=== PATIENT | female | born 1935 | race Caucasian/White ===

== ENCOUNTER 2017-08-26 15:03 | Emergency (ER) | payer MEDICARE, OTHER ==
[2017-08-26 15:11] VITALS: RESP 18
--- NOTE | 2017-08-26 15:30 | ED ---
General Adult HPI - General Chief complaint: Shortness of Breath Stated complaint: SOB Time Seen by Provider: 08/26/17 15:12 Source: patient, family, RN notes reviewed, old records reviewed Mode of arrival: ambulatory Limitations: no limitations - History of Present Illness Initial comments: This is a 41-year-old female the ER for evaluation significant shortness of breath weakness, heart racing. Patient has history, did recently of heart surgery, cough and congestion, recent thoracentesis secondary to pleural effusion, patient coming in today with increasing shortness of breath, weakness. Difficulty catching her breath. Patient unable to fill outpatient prescription for rate control Cardizem for her heart - Related Data Allergies Allergy/AdvReac Type Severity Reaction Status Date / Time diltiazem AdvReac Unknown Verified 08/26/17 15:12 timolol AdvReac Unknown Verified 08/26/17 15:11 beta blockers AdvReac Unknown Uncoded 08/26/17 15:12 Review of Systems ROS Statement: Those systems with pertinent positive or pertinent negative responses have been documented in the HPI. ROS Other: All systems not noted in ROS Statement are negative. Past Medical History Additional Past Medical History / Comment(s): pleural effusion, mitral valve prolapse History of Any Multi-Drug Resistant Organisms: None Reported Additional Past Surgical History / Comment(s): mitral and tricuspid repair, thoracentesis Past Psychological History: No Psychological Hx Reported Smoking Status: Former smoker Past Alcohol Use History: None Reported Past Drug Use History: None Reported General Exam Limitations: no limitations General appearance: alert, in no apparent distress Head exam: Present: atraumatic, normocephalic, normal inspection Eye exam: Present: normal appearance, PERRL, EOMI. Absent: scleral icterus, conjunctival injection, periorbital swelling ENT exam: Present: normal exam, mucous membranes moist Neck exam: Present: normal inspection. Absent: tenderness, meningismus, lymphadenopathy Respiratory exam: Present: normal lung sounds bilaterally. Absent: respiratory distress, rales, rhonchi, stridor Cardiovascular Exam: Present: tachycardia, normal heart sounds. Absent: systolic murmur, diastolic murmur, rubs, gallop, clicks GI/Abdominal exam: Present: soft, normal bowel sounds. Absent: distended, tenderness, guarding, rebound, rigid Extremities exam: Present: normal inspection, full ROM, normal capillary refill. Absent: tenderness, pedal edema, joint swelling, calf tenderness Back exam: Present: normal inspection Neurological exam: Present: alert, oriented X3, CN II-XII intact Psychiatric exam: Present: normal affect, normal mood Skin exam: Present: warm, dry, intact, normal color. Absent: rash Course Vital Signs 08/26/17 08/26/17 08/26/17 15:07 15:44 16:11 Temperature 98.2 F Pulse Rate 73 131 H Pulse Rate [ 125 H Summer Counselor ] Respiratory 18 18 Rate Blood Pressure 113/78 134/72 O2 Sat by Pulse 98 98 Oximetry 08/26/17 08/26/17 08/26/17 16:27 16:37 17:23 Temperature Pulse Rate 124 H 104 H 110 H Pulse Rate [ Summer Counselor ] Respiratory 18 18 18 Rate Blood Pressure 126/59 128/58 O2 Sat by Pulse 99 98 Oximetry - Reevaluation(s) Reevaluation #1: 08/26/17 17:48 Spoke with family at length, requesting transfer under patient's own care of own physician Reevaluation #2: 08/26/17 17:49 Heart rate remains difficult to control despite second bolus and rate control medication EKG Findings - EKG Comments: EKG Findings:: EKG shows a flutter rate of 124, QRS 84, QTC 494 Medical Decision Making - Medical Decision Making 81 female the ER for evaluation, transferred to [facility] for rate control regarding atrial fibrillation with RVR. Further evaluation of elevated troponin - Lab Data Result diagrams: 08/26/17 15:30 08/26/17 15:30 Lab Results 08/26/17 08/26/17 08/26/17 Range/Units 15:30 15:30 15:30 WBC 9.4 (3.8-10.6) k/uL RBC 3.27 L (3.80-5.40) m/uL Hgb 9.6 L (11.4-16.0) gm/dL Hct 30.1 L (34.0-46.0) % MCV 91.9 (80.0-100.0) fL MCH 29.4 (25.0-35.0) pg MCHC 32.0 (31.0-37.0) g/dL RDW 13.6 (11.5-15.5) % Plt Count 653 H (150-450) k/uL Neutrophils % 76 % Lymphocytes % 13 % Monocytes % 8 % Eosinophils % 2 % Basophils % 0 % Neutrophils # 7.1 (1.3-7.7) k/uL Lymphocytes # 1.2 (1.0-4.8) k/uL Monocytes # 0.7 (0-1.0) k/uL Eosinophils # 0.2 (0-0.7) k/uL Basophils # 0.0 (0-0.2) k/uL Hypochromasia Moderate PT (9.0-12.0) sec INR (<1.2) APTT (22.0-30.0) sec Sodium 136 L (137-145) mmol/L Potassium 4.5 (3.5-5.1) mmol/L Chloride 96 L (98-107) mmol/L Carbon Dioxide 29 (22-30) mmol/L Anion Gap 11 mmol/L BUN 24 H (7-17) mg/dL Creatinine 0.80 (0.52-1.04) mg/dL Est GFR (CKD-EPI)AfAm 81 (>60 ml/min/1.73 sqM) Est GFR (CKD-EPI)NonAf 71 (>60 ml/min/1.73 sqM) Glucose 118 H (74-99) mg/dL Plasma Lactic Acid Harry (0.7-2.0) mmol/L Calcium 9.1 (8.4-10.2) mg/dL Total Bilirubin 0.4 (0.2-1.3) mg/dL AST 32 (14-36) U/L ALT 24 (9-52) U/L Alkaline Phosphatase 85 (38-126) U/L Total Creatine Kinase <20 L (30-135) U/L CK-MB (CK-2) 0.8 (0.0-2.4) ng/mL CK-MB (CK-2) Rel Index Troponin I 0.074 H* (0.000-0.034) ng/mL Total Protein 5.9 L (6.3-8.2) g/dL Albumin 3.2 L (3.5-5.0) g/dL 08/26/17 08/26/17 Range/Units 15:30 15:30 WBC (3.8-10.6) k/uL RBC (3.80-5.40) m/uL Hgb (11.4-16.0) gm/dL Hct (34.0-46.0) % MCV (80.0-100.0) fL MCH (25.0-35.0) pg MCHC (31.0-37.0) g/dL RDW (11.5-15.5) % Plt Count (150-450) k/uL Neutrophils % % Lymphocytes % % Monocytes % % Eosinophils % % Basophils % % Neutrophils # (1.3-7.7) k/uL Lymphocytes # (1.0-4.8) k/uL Monocytes # (0-1.0) k/uL Eosinophils # (0-0.7) k/uL Basophils # (0-0.2) k/uL Hypochromasia PT 10.9 (9.0-12.0) sec INR 1.1 (<1.2) APTT 25.9 (22.0-30.0) sec Sodium (137-145) mmol/L Potassium (3.5-5.1) mmol/L Chloride (98-107) mmol/L Carbon Dioxide (22-30) mmol/L Anion Gap mmol/L BUN (7-17) mg/dL Creatinine (0.52-1.04) mg/dL Est GFR (CKD-EPI)AfAm (>60 ml/min/1.73 sqM) Est GFR (CKD-EPI)NonAf (>60 ml/min/1.73 sqM) Glucose (74-99) mg/dL Plasma Lactic Acid Harry 1.5 (0.7-2.0) mmol/L Calcium (8.4-10.2) mg/dL Total Bilirubin (0.2-1.3) mg/dL AST (14-36) U/L ALT (9-52) U/L Alkaline Phosphatase (38-126) U/L Total Creatine Kinase (30-135) U/L CK-MB (CK-2) (0.0-2.4) ng/mL CK-MB (CK-2) Rel Index Troponin I (0.000-0.034) ng/mL Total Protein (6.3-8.2) g/dL Albumin (3.5-5.0) g/dL - Radiology Data Radiology results: report reviewed (Chest x-ray shows no acute disease), image reviewed Critical Care Time Critical Care Time: Yes Total Critical Care Time: 31 Disposition Clinical Impression: Atrial fibrillation with RVR Disposition: OTHER INSTITUTION NOT DEFINED Condition: Fair Is patient prescribed a controlled substance at d/c from ED?: No Referrals: Jay Espinoza III, MD [Primary Care Provider] - 1-2 days - Out of Hospital Transfer - Req. Specs Out of Hospital Transfer - Requested Specifics: Other Emergency Center ( [facility])
[2017-08-26 15:47] LABS: Basophils % (A) 0 %; Eosinophils # (A) 0.2 k/uL (0-0.7); Eosinophils % (A) 2 %; HCT 30.1 % (34.0-46.0); HGB 9.6 gm/dL (11.4-16.0); Hypochromasia Moderate; Lymphocytes # (A) 1.2 k/uL (1.0-4.8); Lymphocytes % (A) 13 %; MCH 29.4 pg (25.0-35.0); MCV 91.9 fL (80.0-100.0); Mean Platelet Volume 7.2; Monocytes # (A) 0.7 k/uL (0-1.0); Monocytes % (A) 8 %; Neutrophils # (A) 7.1 k/uL (1.3-7.7); Neutrophils % (A) 76 %; Platelet Count 653 k/uL (150-450); RBC 3.27 m/uL (3.80-5.40); RDW 13.6 % (11.5-15.5); WBC 9.4 k/uL (3.8-10.6)
[2017-08-26] MEDS ORDERED: DILTIAZEM 50 MG in SODIUM CHLORIDE 0.9% 40 ML IV ONE (15:54)
[2017-08-26 15:57] LABS: INR 1.1 (<1.2); Partial Thromboplastin Time 25.9 sec (22.0-30.0); Prothrombin Time 10.9 sec (9.0-12.0)
--- NOTE | 2017-08-26 16:02 | XR ---
EXAMINATION TYPE: XR chest 2V DATE OF EXAM: 08/26/2017 COMPARISON: NONE HISTORY: Shortness of breath TECHNIQUE: Frontal and lateral views of the chest are obtained. FINDINGS: Scattered senescent parenchymal changes noted. Elevation right hemidiaphragm. Bilateral pleural effusions. Nodular density left suprahilar region. Heart size is enlarged. Cardiac valvular prostheses noted. Mediastinal structures are stable and grossly unremarkable. No evidence for hilar prominence. Degenerative changes dorsal spine. IMPRESSION: 1. Small bilateral pleural effusions. Chronic elevation right hemidiaphragm. 2. 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
[2017-08-26 16:03] LABS: Albumin 3.2 g/dL (3.5-5.0); Calcium 9.1 mg/dL (8.4-10.2); Potassium 4.5 mmol/L (3.5-5.1); Total Bilirubin 0.4 mg/dL (0.2-1.3); Total Protein 5.9 g/dL (6.3-8.2)
[2017-08-26 16:18] LABS: Creatine Kinase <20 U/L (30-135)
[2017-08-26] MEDS ORDERED: DILTIAZEM 5 MG/1 ML (25ML VIAL) IV STA (16:21)
[2017-08-26 16:30] LABS: Creatine Kinase MB 0.8 ng/mL (0.0-2.4)
[2017-08-26 16:38] LABS: Troponin I 0.074 ng/mL (0.000-0.034)
[2017-08-26 17:54] VITALS: BP 126/78; PULSE 119; TEMP 98
== END 2017-08-26 18:03 | disposition other institution (70) ==
LOC: EC 15:03
DX: I48.91 Unspecified atrial fibrillation (principal); R53.1 Weakness; Z87.891 Personal history of nicotine dependence; Z88.8 Allergy status to other drugs, medicaments and biological substances
CPT/HCPCS: 36415; 71046; 80053; 82550; 82553; 83605; 84484; 85025; 85610; 85730; 93005; 96365; 96366; 96376; 99291

== ENCOUNTER 2019-11-08 15:59 | Emergency (ER) | payer MEDICARE, OTHER ==
[2019-11-08] MEDS ORDERED: SODIUM CHLORIDE 0.9% 1,000 ML IV STA (16:24)
--- NOTE | 2019-11-08 16:27 | ED ---
General Adult HPI - General Chief complaint: Neuro Symptoms/Deficit Stated complaint: Stroke like symptoms Time Seen by Provider: 11/08/19 16:06 Source: patient, RN notes reviewed Mode of arrival: ambulatory Limitations: no limitations - History of Present Illness Initial comments: Patient is a pleasant 84-year-old female presenting to the emergency Department with complaints of being off balance and is told changes. Patient felt off balance starting yesterday. Symptoms have been intermittent. Patient had an episode around 9:30 this morning when she was trying to read her computer however had very blurry vision out of her right eye and difficulty reading. Symptoms are only present during that episode and have not been present otherwise. Patient is symptom-free at this time resting in bed. Daughter is present who seems to contradict patient at times however patient does seem to be an adequate historian. Patient also has complaints of some paresthesias of the left neck without radiation to the face or arm. No noticed isolated weakness of arms or legs. No facial weakness. No headache. - Related Data Home Medications Medication Instructions Recorded Confirmed Aspirin 81 mg PO DAILY 11/08/19 11/08/19 Verapamil HCl [Verapamil ER] 180 mg PO HS 11/08/19 11/08/19 Allergies Allergy/AdvReac Type Severity Reaction Status Date / Time Beta-Blockers AdvReac heart Verified 11/08/19 17:05 (Beta-Adrenergic Bloc issues diltiazem AdvReac heart Verified 11/08/19 17:04 issues timolol AdvReac heart Verified 11/08/19 17:04 issues Review of Systems ROS Statement: Those systems with pertinent positive or pertinent negative responses have been documented in the HPI. ROS Other: All systems not noted in ROS Statement are negative. Constitutional: Denies: fever Eyes: Reports: as per HPI, vision change. Denies: eye pain ENT: Denies: ear pain Respiratory: Denies: cough Cardiovascular: Denies: chest pain Endocrine: Denies: fatigue Gastrointestinal: Denies: abdominal pain Genitourinary: Denies: dysuria Musculoskeletal: Denies: back pain Skin: Denies: rash Neurological: Reports: as per HPI. Denies: headache Past Medical History Additional Past Medical History / Comment(s): pleural effusion, mitral valve prolapse History of Any Multi-Drug Resistant Organisms: None Reported Past Surgical History: Coronary Bypass/CABG Additional Past Surgical History / Comment(s): mitral and tricuspid repair, thoracentesis Past Psychological History: No Psychological Hx Reported Smoking Status: Never smoker Past Alcohol Use History: None Reported Past Drug Use History: None Reported General Exam Limitations: no limitations General appearance: alert, in no apparent distress Head exam: Present: normocephalic Eye exam: Present: normal appearance, PERRL, EOMI. Absent: nystagmus ENT exam: Present: normal oropharynx Neck exam: Present: normal inspection Respiratory exam: Present: normal lung sounds bilaterally Cardiovascular Exam: Present: regular rate, normal rhythm GI/Abdominal exam: Present: soft. Absent: tenderness Extremities exam: Present: normal inspection Neurological exam: Present: alert, oriented X3, CN II-XII intact. Absent: motor sensory deficit Expanded Neurological exam: Present: protecting the airway Patient oriented to: Present: person, place, time Speech: Present: fluid speech Cranial nerves: EOM's Intact: Normal, Facial Sensation: Normal Sensory exam: Upper Extremity Light Touch: Normal, Lower Extremity Light Touch: Normal Motor strength exam: RUE: 5, LUE: 5, RLE: 5, LLE: 5 Eye Response: (4) open spontaneously Motor Response: (6) obeys commands Verbal Response: (5) oriented Psychiatric exam: Present: normal affect, normal mood Skin exam: Present: normal color Course Vital Signs 11/08/19 11/08/19 11/08/19 16:00 16:30 17:00 Temperature 98.5 F Pulse Rate 87 72 85 Respiratory 20 20 21 Rate Blood Pressure 138/72 131/103 135/89 O2 Sat by Pulse 97 96 95 Oximetry - Reevaluation(s) Reevaluation #1: 11/08/19 16:59 Case was discussed with Dr. ugalde who agrees patient is not a TPA candidate. He will accept transfer to [facility] if family is agreeable with this. There is no neurology present at our hospital today. 11/08/19 18:18 Patient reevaluated and resting comfortably in bed. Patient rates symptom-free at this point. Patient and family updated. Daughter states she works at [facility] [employer] [facility] and requests patient be transferred there. Patient is recommended transfer by ambulance however patient and daughter refuses this and they will drive on their own. They are made aware that recommendation for and will transfer is made and reasons why were explained to them 11/08/19 18:24 Case was discussed with Sandip from the transfer chain or [facility] as well as Dr. De Paz who will accept transfer. EKG Findings - EKG Comments: EKG Findings:: Sinus rhythm at 83. Premature superventricular, axis. IN 136. QRS 78. QT 392. QTC 460. Normal axis. Normal QRS. Nonspecific T waves. Medical Decision Making - Lab Data Result diagrams: 11/08/19 16:29 11/08/19 16:29 Lab Results 11/08/19 11/08/19 11/08/19 Range/Units 16:29 16:29 16:29 WBC 8.9 (3.8-10.6) k/uL RBC 3.78 L (3.80-5.40) m/uL Hgb 12.5 (11.4-16.0) gm/dL Hct 37.5 (34.0-46.0) % MCV 99.2 (80.0-100.0) fL MCH 33.0 (25.0-35.0) pg MCHC 33.3 (31.0-37.0) g/dL RDW 13.1 (11.5-15.5) % Plt Count 259 (150-450) k/uL Neutrophils % 68 % Lymphocytes % 23 % Monocytes % 5 % Eosinophils % 2 % Basophils % 1 % Neutrophils # 6.0 (1.3-7.7) k/uL Lymphocytes # 2.1 (1.0-4.8) k/uL Monocytes # 0.5 (0-1.0) k/uL Eosinophils # 0.2 (0-0.7) k/uL Basophils # 0.0 (0-0.2) k/uL PT 9.7 (9.0-12.0) sec INR 0.9 (<1.2) APTT 24.4 (22.0-30.0) sec Sodium 136 L (137-145) mmol/L Potassium 4.4 (3.5-5.1) mmol/L Chloride 104 (98-107) mmol/L Carbon Dioxide 24 (22-30) mmol/L Anion Gap 8 mmol/L BUN 22 H (7-17) mg/dL Creatinine 0.84 (0.52-1.04) mg/dL Est GFR (CKD-EPI)AfAm 75 (>60 ml/min/1.73 sqM) Est GFR (CKD-EPI)NonAf 65 (>60 ml/min/1.73 sqM) Glucose 104 H (74-99) mg/dL POC Glucose (mg/dL) (75-99) mg/dL POC Glu Archival Records Clerk ID Calcium 9.7 (8.4-10.2) mg/dL Total Bilirubin 0.2 (0.2-1.3) mg/dL AST 26 (14-36) U/L ALT 19 (4-34) U/L Alkaline Phosphatase 64 (38-126) U/L Troponin I (0.000-0.034) ng/mL Total Protein 7.2 (6.3-8.2) g/dL Albumin 4.4 (3.5-5.0) g/dL 11/08/19 11/08/19 Range/Units 16:29 16:30 WBC (3.8-10.6) k/uL RBC (3.80-5.40) m/uL Hgb (11.4-16.0) gm/dL Hct (34.0-46.0) % MCV (80.0-100.0) fL MCH (25.0-35.0) pg MCHC (31.0-37.0) g/dL RDW (11.5-15.5) % Plt Count (150-450) k/uL Neutrophils % % Lymphocytes % % Monocytes % % Eosinophils % % Basophils % % Neutrophils # (1.3-7.7) k/uL Lymphocytes # (1.0-4.8) k/uL Monocytes # (0-1.0) k/uL Eosinophils # (0-0.7) k/uL Basophils # (0-0.2) k/uL PT (9.0-12.0) sec INR (<1.2) APTT (22.0-30.0) sec Sodium (137-145) mmol/L Potassium (3.5-5.1) mmol/L Chloride (98-107) mmol/L Carbon Dioxide (22-30) mmol/L Anion Gap mmol/L BUN (7-17) mg/dL Creatinine (0.52-1.04) mg/dL Est GFR (CKD-EPI)AfAm (>60 ml/min/1.73 sqM) Est GFR (CKD-EPI)NonAf (>60 ml/min/1.73 sqM) Glucose (74-99) mg/dL POC Glucose (mg/dL) 118 H (75-99) mg/dL POC Glu Archival Records Clerk ID Arminda Wang Calcium (8.4-10.2) mg/dL Total Bilirubin (0.2-1.3) mg/dL AST (14-36) U/L ALT (4-34) U/L Alkaline Phosphatase (38-126) U/L Troponin I <0.012 (0.000-0.034) ng/mL Total Protein (6.3-8.2) g/dL Albumin (3.5-5.0) g/dL Disposition Clinical Impression: Transient cerebral ischemia Disposition: OTHER INSTITUTION NOT DEFINED Is patient prescribed a controlled substance at d/c from ED?: No Referrals: Jay Espinoza III, MD [Primary Care Provider] - 1-2 days Time of Disposition: 18:26 - Out of Hospital Transfer - Req. Specs Out of Hospital Transfer - Requested Specifics: Other Emergency Center
[2019-11-08 16:31] LABS: Glucose,Whole Blood 118 mg/dL (75-99)
[2019-11-08 16:54] LABS: Basophils % (A) 1 %; Eosinophils # (A) 0.2 k/uL (0-0.7); Eosinophils % (A) 2 %; HCT 37.5 % (34.0-46.0); HGB 12.5 gm/dL (11.4-16.0); Lymphocytes # (A) 2.1 k/uL (1.0-4.8); Lymphocytes % (A) 23 %; MCHC 33.3 g/dL (31.0-37.0); MCV 99.2 fL (80.0-100.0); Mean Platelet Volume 8.2; Monocytes # (A) 0.5 k/uL (0-1.0); Monocytes % (A) 5 %; Neutrophils % (A) 68 %; Platelet Count 259 k/uL (150-450); RBC 3.78 m/uL (3.80-5.40); RDW 13.1 % (11.5-15.5); WBC 8.9 k/uL (3.8-10.6)
--- NOTE | 2019-11-08 16:58 | CT ---
EXAMINATION TYPE: CT brain wo con for TPA DATE OF EXAM: 11/08/2019 COMPARISON: None HISTORY: Near syncope and numbness. CT DLP: 1102.8 mGycm Automated exposure control for dose reduction was used. Multiple axial sections were obtained of the brain without contrast. Ventricles and sulci appear normal. There is no mass effect nor midline shift. There is no sign of in tracranial hemorrhage. There is mild cerebral atrophy. Calvarium is intact. IMPRESSION: Mild atrophy. No acute intracranial abnormality.
[2019-11-08 17:04] LABS: Albumin 4.4 g/dL (3.5-5.0); Calcium 9.7 mg/dL (8.4-10.2); INR 0.9 (<1.2); Partial Thromboplastin Time 24.4 sec (22.0-30.0); Potassium 4.4 mmol/L (3.5-5.1); Prothrombin Time 9.7 sec (9.0-12.0); Total Bilirubin 0.2 mg/dL (0.2-1.3); Total Protein 7.2 g/dL (6.3-8.2)
--- NOTE | 2019-11-08 17:34 | CT ---
EXAMINATION TYPE: CT angio head neck DATE OF EXAM: 11/08/2019 COMPARISON: None HISTORY: Syncope. Numbness. CT DLP: mGycm Automated exposure control for dose reduction was used. CONTRAST: Performed , patient injected with mL of . The contrast was Isovue 65 mL. Images were obtained from the aortic arch to the vertex of the brain w ith IV contrast and 3-D post processed images. There is 1.6 cm nodular density at the superior left pulmonary hilum that could be enlarged lymph nod e. Thoracic aorta is intact. There is normal branching pattern of the great vessels. There is bilater al arterial flow in the subclavian arteries. There is arterial flow in the common internal and swabber al carotid arteries bilaterally. There is bilateral wide patency of the carotid artery bifurcations. There is some tortuosity of the proximal internal carotid arteries bilaterally. There is bilateral ar terial flow in the vertebral arteries. There is arterial flow in the vertebrobasilar artery system. T here is no evidence of carotid or vertebral artery aneurysm or dissection. There is mild ectasia of the intracranial internal carotid arteries. I see no aneurysm. There is janel rial flow in the anterior middle and posterior cerebral arteries. There is no mass effect. I see no e vidence of intracranial arterial stenosis. I see no evidence of intracranial aneurysm or neovasculari ty. There is normal contrast opacification of the venous sinuses. IMPRESSION: Negative CT angiogram of the neck. Negative CT angiogram of the brain. No evidence of arterial hemody namic stenosis.
--- NOTE | 2019-11-08 18:17 | XR ---
EXAMINATION TYPE: XR chest 2V DATE OF EXAM: 11/08/2019 COMPARISON: 10/17/2019 HISTORY: Altered mental status TECHNIQUE: 2 views FINDINGS: There is slight blunting of the costophrenic angles. There is no gross heart failure. There is mild thoracic dextroscoliosis. Lungs appear clear of consolidation. There is small linear infiltr ate above the left pulmonary hilum in the left upper lobe. IMPRESSION: Small pleural effusions or pleural reaction unchanged. No heart failure seen. Small left upper lobe linear infiltrate unchanged.
[2019-11-08] MEDS ORDERED: ASPIRIN 81 MG PO STA (18:18)
[2019-11-08 19:09] VITALS: BP 160/83; PULSE 83; RESP 16; TEMP 98.3
== END 2019-11-08 19:20 | disposition other institution (70) ==
LOC: EC 15:59
DX: G45.9 Transient cerebral ischemic attack, unspecified (principal); Z79.82 Long term (current) use of aspirin; Z79.899 Other long term (current) drug therapy; Z88.8 Allergy status to other drugs, medicaments and biological substances; Z95.1 Presence of aortocoronary bypass graft
CPT/HCPCS: 36415; 93005; 80053; 84484; 85025; 85610; 85730; 71046; 70496; 70450; 70498; 99285; 96360; 96361; Q9967

== ENCOUNTER → 2020-03-10 | Outpatient (CLI) | payer MEDICARE, OTHER ==
--- NOTE | 2020-03-14 11:23 | CT ---
EXAMINATION TYPE: CT chest w con DATE OF EXAM: 03/10/2020 COMPARISON: 12/07/2017 HISTORY: Abnormal findings of lung field CT DLP: 197.40 mGycm, Automated exposure control for dose reduction was used. CONTRAST: Performed injected with 100 ml mL of Isovue 300. TECHNIQUE: Axial images were obtained at 5 mm thick sections. Reconstructed images are reviewed on [facility] computer in the coronal plane. Images are presented on 03/14/2020 for final interpretation upon re ceipt of outside comparison images. FINDINGS: Thyroid is slightly heterogenous. There is a 1.7 x 2.4 cm nodule in the superior medial left upper lobe. Series 3 image 17. Previous me asurement 1.5 x 1.9 cm. This has a spiculated border on the lung windows. A spiculated border is an i nterval change from comparison. There is shotty lymphadenopathy within the mediastinum. No enlarged mediastinal or hilar adenopathy i s evident. The ascending aorta diameter at the level of the main pulmonary artery is 3.3 cm. The m ain pulmonary artery diameter at the bifurcation is 3.[address] sections are obtained through the upper abdomen. There couple small hypodensities within t superior right lobe liver present previously may be small hepatic cysts. Upper abdomen is otherwis e unremarkable. IMPRESSIONS: 1. Mildly enlarging spiculated mass left medial apex. Current measurements of 1.7 x 2.4 cm. This is m ore spiculated appearance on lung windows.
== END | disposition home or self-care (01) ==
LOC: RADCTMAIN 06:30
PROVIDERS: ATTEND Family Medicine
DX: R91.8 Other nonspecific abnormal finding of lung field (principal)
CPT/HCPCS: 82565; 84520; 71260; 36415; Q9967

== ENCOUNTER → 2020-05-04 | Outpatient (CLI) | payer MEDICARE, OTHER ==
--- NOTE | 2020-05-04 12:39 | US ---
EXAMINATION TYPE: US abdomen complete DATE OF EXAM: 05/04/2020 COMPARISON: NONE CLINICAL HISTORY: 84-year-old female R10.10 UPPER ABD PAIN, R10.32 LEFT LOWER QUADRANT PAIN. TECHNIQUE: Multiple sonographic images of the abdomen are obtained. FINDINGS: EXAM MEASUREMENTS: Liver Length: 11.8 cm Gallbladder Wall: 0.1 cm CBD: 0.2 cm Spleen: 6.7 cm Right Kidney: 9.1 x 3.9 x 4.9 cm Left Kidney: 9.2 x 4.0 x 3.6 cm Pancreas: Suboptimal visualization of the pancreatic head and tail due to shadowing from bowel gas. Liver: Heterogeneous echotexture. There is a tiny cyst 1 mm cyst in the right lobe. Gallbladder: Minimal layering gravel is present. No abnormal distention, wall thickening, pericholecy stic fluid, or shadowing calculi. Evidence for sonographic Dunn's sign: no CBD: wnl Spleen: wnl Right Kidney: wnl, no hydronephrosis. Left Kidney: Lobular contour. No hydronephrosis. Upper IVC: wnl Abd Aorta: wnl IMPRESSION: 1. Heterogeneous liver echotexture could be on a technical basis or could reflect nonspecific hepatoc ellular disease. Clinically correlate. 2. Some minimal layering gravel in the gallbladder. 3. No biliary ductal dilatation.
== END | disposition home or self-care (01) ==
LOC: RADUSWWP 09:53
PROVIDERS: ATTEND Family Medicine
DX: R93.2 Abnormal findings on diagnostic imaging of liver and biliary tract (principal); R10.32 Left lower quadrant pain; R10.10 Upper abdominal pain, unspecified
CPT/HCPCS: 76700

== ENCOUNTER → 2020-05-21 | Outpatient (CLI) | payer MEDICARE, OTHER ==
--- NOTE | 2020-05-21 18:56 | US ---
EXAMINATION TYPE: US carotid duplex BILAT DATE OF EXAM: 05/21/2020 COMPARISON: NONE CLINICAL HISTORY: 84-year-old female I67.9 Cerebrovascular disease, unspecified. TECHNIQUE: Carotid duplex ultrasound examination. Indirect Doppler criteria was utilized. FINDINGS: EXAM MEASUREMENTS: RIGHT: Peak Systolic Velocity (PSV) cm/sec ----- Right CCA: 60.6 ----- Right ICA: 140.8 ----- Right ECA: 177.3 ICA/CCA ratio: 2.3 RIGHT: End Diastole cm/sec ----- Right CCA: 10.7 ----- Right ICA: 35.6 ----- Right ECA: 12.6 LEFT: Peak Systolic Velocity (PSV) cm/sec ----- Left CCA: 79.6 ----- Left ICA: 91.2 ----- Left ECA: 79.4 ICA/CCA ratio: 1.1 LEFT: End Diastole cm/sec ----- Left CCA: 17.7 ----- Left ICA: 29.8 ----- Left ECA: 0.0 VERTEBRALS (direction of flow): Right Vertebral: Antegrade Left Vertebral: Antegrade Rhythm: Normal Automobile Mechanic Motor notes: Bilateral intimal thickening, minimal plaque bilateral bulb. Elevated velocities: right distal ICA and right proximal ECA, right ICA/CCA ratio 2.3 IMPRESSION: Given the measurements, unable to exclude a moderate (50-69%) right ICA stenosis. Criteria for Assigning % of Stenosis / Diameter reduction (Estimation based on the indirect measurements of the internal carotid artery velocities (ICA PSV). 1. Normal (no stenosis)=ICA PSV < 125 cm/s: ratio < 2.0: ICA EDV<40 cm/s. 2. Less than 50% stenosis=ICA PSV < 125 cm/s: ratio < 2.0: ICA EDV<40 cm/s. 3. 50 to 69% stenosis=ICA PSV of 125 to 230 cm/s: ration 2.0 ? 4.0: ICA EDV 40-100 cm/s. 4. Greater than 70% stenosis to near occlusion= ICA PSV > 230 cm/s: ratio > 4.0: ICA EDV > 100 cm/s. 5. Near occlusion= ICA PSV velocities may be low or undetectable: variable ratio and ICA EDV. 6. Total occlusion=unable to detect flow.
== END | disposition home or self-care (01) ==
LOC: RADUSWWP 12:25
PROVIDERS: ATTEND Family Medicine
DX: I67.9 Cerebrovascular disease, unspecified (principal)
CPT/HCPCS: 93880

== ENCOUNTER 2020-09-18 22:00 | Inpatient (IN) | payer MEDICARE, OTHER ==
[2020-09-18] MEDS ORDERED: ONDANSETRON 4 MG/2 ML VIAL IVP STA (22:28)
[2020-09-18] MEDS ORDERED: SODIUM CHLORIDE 0.9% 500 ML 500 ML IV STA (22:28)
--- NOTE | 2020-09-18 22:44 | ED ---
Abdominal Pain HPI - General Chief Complaint: Abdominal Pain Stated Complaint: Abdominal Pain Time Seen by Provider: 09/18/20 22:07 Source: patient, EMS Mode of arrival: EMS Limitations: no limitations - History of Present Illness Initial Comments: This patient is an 85-year-old woman presenting to be evaluated for diffuse abdominal pain. When asked how long the pain is been going on she initially answered for a year, subsequently stated it was probably more like 3 years that she's been having pains. She states she has had lab tests and CAT scans previously. Patient states that this evening she had nausea and that prompted her to come in by ambulance to be evaluated. She did reportedly receive dose of ondansetron. MD Complaint: abdominal pain -: year(s) Location: diffuse Radiation: none Migration to: no migration Severity: severe Quality: sharp Consistency: constant Improves With: nothing Worsens With: nothing Associated Symptoms: nausea - Related Data Previous Rx's Medication Instructions Recorded Apixaban [Eliquis] 2.5 mg PO BID #60 tab 09/22/20 Acetaminophen Tab [Tylenol] 650 mg PO Q4HR PRN tab 09/23/20 Furosemide [Lasix] 20 mg PO DAILY #30 tab 09/23/20 Metoprolol Tartrate [Lopressor] 25 mg PO BID #60 tab 09/23/20 Pantoprazole [Protonix] 40 mg PO DAILY #30 tablet. 09/23/20 Potassium Chloride ER [K-Dur 10] 10 meq PO DAILY #30 tab 09/23/20 Verapamil Sr [Isoptin Sr] 120 mg PO DAILY #30 tablet.er 09/23/20 Allergies Allergy/AdvReac Type Severity Reaction Status Date / Time Beta-Blockers AdvReac heart Verified 09/18/20 23:02 (Beta-Adrenergic Bloc issues diltiazem AdvReac heart Verified 09/18/20 23:02 issues timolol AdvReac heart Verified 09/18/20 23:02 issues Review of Systems ROS Statement: Those systems with pertinent positive or pertinent negative responses have been documented in the HPI. ROS Other: All systems not noted in ROS Statement are negative. Constitutional: Denies: fever, chills Respiratory: Denies: cough, dyspnea Cardiovascular: Denies: chest pain, palpitations Gastrointestinal: Reports: abdominal pain, nausea. Denies: vomiting, diarrhea, constipation, melena, hematochezia Genitourinary: Denies: dysuria, hematuria Musculoskeletal: Denies: back pain Skin: Denies: rash Neurological: Denies: headache Past Medical History Additional Past Medical History / Comment(s): pleural effusion, mitral valve prolapse History of Any Multi-Drug Resistant Organisms: None Reported Past Surgical History: Coronary Bypass/CABG Additional Past Surgical History / Comment(s): mitral and tricuspid repair, thoracentesis Past Psychological History: No Psychological Hx Reported Smoking Status: Never smoker Past Alcohol Use History: None Reported Past Drug Use History: None Reported General Exam Limitations: no limitations General appearance: alert, in no apparent distress Head exam: Present: atraumatic, normocephalic Eye exam: Present: normal appearance. Absent: scleral icterus, conjunctival injection Neck exam: Present: normal inspection Respiratory exam: Present: normal lung sounds bilaterally. Absent: respiratory distress, wheezes, rales, rhonchi, stridor Cardiovascular Exam: Present: regular rate, normal rhythm, normal heart sounds. Absent: systolic murmur, diastolic murmur, rubs, gallop GI/Abdominal exam: Present: soft, tenderness, hernia, other (There is tenderness and guarding in the left lower quadrant consistent with suspected hernia. I was not able to reduce this at the bedside.). Absent: distended, guarding, rebound, rigid, mass, pulsatile mass Extremities exam: Present: normal inspection, normal capillary refill. Absent: pedal edema, calf tenderness Back exam: Present: normal inspection. Absent: CVA tenderness (R), CVA tenderness (L) Neurological exam: Present: alert Skin exam: Present: warm, dry, intact, normal color. Absent: rash Course Vital Signs 09/18/20 09/19/20 09/19/20 22:10 02:00 03:09 Temperature 98.1 F 97.6 F Pulse Rate 85 76 Pulse Rate [ 100 Pulse Oximetery ] Respiratory 20 14 16 Rate Blood Pressure 139/88 127/73 Blood Pressure 178/76 [Left Arm] O2 Sat by Pulse 99 98 98 Oximetry Medical Decision Making - Medical Decision Making Patient is an 85-year-old woman with abdominal pain found to have incarcerated hernia. Case is discussed with the surgeon and patient will be pending the OR. - Lab Data Result diagrams: 09/22/20 06:57 09/23/20 09:52 Lab Results 09/18/20 09/18/20 Range/Units 22:16 22:16 WBC 10.4 (3.8-10.6) k/uL RBC 3.97 (3.80-5.40) m/uL Hgb 13.1 (11.4-16.0) gm/dL Hct 38.0 (34.0-46.0) % MCV 95.8 (80.0-100.0) fL MCH 32.9 (25.0-35.0) pg MCHC 34.3 (31.0-37.0) g/dL RDW 12.5 (11.5-15.5) % Plt Count 271 (150-450) k/uL MPV 8.3 Neutrophils % 88 % Lymphocytes % 7 % Monocytes % 4 % Eosinophils % 0 % Basophils % 0 % Neutrophils # 9.2 H (1.3-7.7) k/uL Lymphocytes # 0.7 L (1.0-4.8) k/uL Monocytes # 0.4 (0-1.0) k/uL Eosinophils # 0.0 (0-0.7) k/uL Basophils # 0.0 (0-0.2) k/uL Sodium 136 L (137-145) mmol/L Potassium 4.1 (3.5-5.1) mmol/L Chloride 104 (98-107) mmol/L Carbon Dioxide 22 (22-30) mmol/L Anion Gap 10 mmol/L BUN 17 (7-17) mg/dL Creatinine 0.94 (0.52-1.04) mg/dL Est GFR (CKD-EPI)AfAm 65 (>60 ml/min/1.73 sqM) Est GFR (CKD-EPI)NonAf 56 (>60 ml/min/1.73 sqM) Glucose 159 H (74-99) mg/dL Calcium 9.1 (8.4-10.2) mg/dL Total Bilirubin 0.4 (0.2-1.3) mg/dL AST 23 (14-36) U/L ALT 14 (4-34) U/L Alkaline Phosphatase 72 (38-126) U/L Total Protein 6.8 (6.3-8.2) g/dL Albumin 4.1 (3.5-5.0) g/dL Amylase 86 (30-110) U/L Lipase 366 H (23-300) U/L - EKG Data -: EKG Interpreted by Me EKG shows normal: sinus rhythm (With PSVT is), axis (Normal), intervals (Normal), QRS complexes (Normal) Rate: normal (Rate 88 bpm) Interpretation: nonspecific ST-T wave changes Disposition Clinical Impression: Bowel obstruction, Incarcerated hernia Disposition: ADMITTED IP TO THIS HOSP
[2020-09-18 22:51] LABS: Basophils % (A) 0 %; Eosinophils % (A) 0 %; HGB 13.1 gm/dL (11.4-16.0); Lymphocytes # (A) 0.7 k/uL (1.0-4.8); Lymphocytes % (A) 7 %; MCH 32.9 pg (25.0-35.0); MCHC 34.3 g/dL (31.0-37.0); MCV 95.8 fL (80.0-100.0); Mean Platelet Volume 8.3; Monocytes # (A) 0.4 k/uL (0-1.0); Monocytes % (A) 4 %; Neutrophils # (A) 9.2 k/uL (1.3-7.7); Neutrophils % (A) 88 %; Platelet Count 271 k/uL (150-450); RBC 3.97 m/uL (3.80-5.40); RDW 12.5 % (11.5-15.5); WBC 10.4 k/uL (3.8-10.6)
[2020-09-18 23:14] LABS: Albumin 4.1 g/dL (3.5-5.0); Calcium 9.1 mg/dL (8.4-10.2); Potassium 4.1 mmol/L (3.5-5.1); Total Bilirubin 0.4 mg/dL (0.2-1.3); Total Protein 6.8 g/dL (6.3-8.2)
[2020-09-19] MEDS ORDERED: ONDANSETRON 4 MG/2 ML VIAL IVP STA ×2 (00:39→01:38)
--- NOTE | 2020-09-19 01:06 | CT ---
EXAM: CT Abdomen and Pelvis With Intravenous Contrast CLINICAL HISTORY: ITS.REASON CT Reason: abdominal pain TECHNIQUE: Axial computed tomography images of the abdomen and pelvis with intravenous contrast. CTDI is 17.37 mGy and DLP is 683.6 mGy-cm. This CT exam was performed using one or more of the following dose reduction techniques: automated exposure control, adjustment of the mA and/or kV according to patient size, and/or use of iterative reconstruction technique. COMPARISON: No relevant prior studies available. FINDINGS: Lung bases: Unremarkable. Heart: Coronary artery calcifications. Mediastinum: Small hiatal hernia. ABDOMEN: Liver: Lobulated contour of the liver which may represent cirrhosis. There are few cystic structures which are too small to characterize. Gallbladder and bile ducts: Unremarkable. Pancreas: 6 mm hypodense lesion within the tail the pancreas which may represent sidebranch IPMN. Spleen: Unremarkable. Adrenals: Unremarkable. Kidneys and ureters: Cysts within both kidneys. Stomach and bowel: Small bowel obstruction with a transition point in the left ventral wall hernia (201-55). Small amount of fluid within the hernia sac. No free air. No evidence of incarceration. Colonic diverticulosis. PELVIS: Appendix: No findings to suggest acute appendicitis. Bladder: Unremarkable. Reproductive: Unremarkable as visualized. ABDOMEN and PELVIS: Intraperitoneal space: See above. Bones/joints: Degenerative changes and scoliosis of the spine. No acute fracture. No dislocation. Soft tissues: See above. Vasculature: Vascular calcifications. Lymph nodes: Unremarkable. IMPRESSION: Small bowel obstruction with a transition point in the left ventral wall hernia (201-55). Small amount of fluid within the hernia sac. No free air. No evidence of incarceration.
[2020-09-19] MEDS ORDERED: PROCHLORPERAZINE 5 MG TAB PO STA (01:16)
[2020-09-19] MEDS ORDERED: MORPHINE SULFATE 4 MG/ML SYRINGE IV PRN (01:17)
[2020-09-19] MEDS ORDERED: HYDROmorphone 0.5 MG/0.5 ML SYRINGE IVP PRN (01:17)
[2020-09-19] MEDS ORDERED: ONDANSETRON 4 MG/2 ML VIAL IVP PRN (01:17)
[2020-09-19] MEDS ORDERED: NALOXONE 0.4 MG/ML 1 ML VIAL IV PRN (01:17)
[2020-09-19] MEDS: SODIUM CHLORIDE 0.9% 1,000 ML IV SCH ×3 (01:50→20:13)
[2020-09-19 02:06] LABS: Appearance,Urine Clear (Clear); Bilirubin,Urine Negative (Negative); Blood,Urine Negative (Negative); Color,Urine Yellow; Glucose,Urine (UA) Negative (Negative); Ketones,Urine 3+ (Negative); Leukocyte Esterase,Urine Negative (Negative); Nitrite,Urine Negative (Negative); PH, Urine 7.5 (5.0-8.0); Protein,Urine Trace (Negative); Specific Gravity,Urine 1.036 (1.001-1.035); Urobilinogen,Urine <2.0 mg/dL (<2.0)
[2020-09-19] MEDS ORDERED: ROCURONIUM 10 MG/ML (5 ML VIAL) IV ONE (07:30)
[2020-09-19] MEDS ORDERED: KETAMINE 10 MG/ML 20 ML VIAL ONE (07:30)
[2020-09-19] MEDS ORDERED: ONDANSETRON 4 MG/2 ML VIAL ONE (07:30)
[2020-09-19] MEDS ORDERED: PHENYLEPHRINE-0.9% NACL SYG 1,000 MCG/10 ML SYRINGE ONE (07:30)
[2020-09-19] MEDS ORDERED: HEPARIN SODIUM,PORCINE 5,000 UNIT/ML 1 ML VIAL ONE (07:30)
[2020-09-19] MEDS ORDERED: SUCCINYLCHOLINE CHLORIDE 100 MG/5 ML SYR IV ONE (07:30)
[2020-09-19] MEDS ORDERED: fentaNYL (PF) 50 MCG/ML 2 ML AMP ONE (07:30)
[2020-09-19] MEDS ORDERED: PROPOFOL 10 MG/ML 20 ML VIAL IV ONE (07:30)
[2020-09-19] MEDS ORDERED: LIDOCAINE 1% INJ 10MG/ML (20 ML MDV) ONE (07:30)
[2020-09-19] MEDS ORDERED: DEXAMETHASONE SOD PHOSPHATE 10 MG/ML 1 ML VIAL ONE (07:30)
[2020-09-19] MEDS ORDERED: GLYCOPYRROLATE 0.2 MG/ML 2 ML VIAL ONE (07:30)
[2020-09-19] MEDS ORDERED: MIDAZOLAM 2 MG/2 ML VIAL ONE (07:30)
[2020-09-19] MEDS ORDERED: OXYMETAZOLINE 0.05% NASL SPRAY 1 SPRAY BOTTLE ONE (07:30)
[2020-09-19] MEDS ORDERED: NEOSTIGMINE 1 MG/ML 10 ML VIAL ONE (07:30)
[2020-09-19] MEDS ORDERED: IV FLUID CONTINUATION 1,000 ML IV ONE (07:35)
[2020-09-19] MEDS ORDERED: SODIUM CHLORIDE 0.9% 100 ML with ceFAZolin 2,000 MG IV ONE ×2 (07:35)
--- NOTE | 2020-09-19 07:36 | P.GSCN ---
History of Present Illness Consult date: 09/19/20 History of present illness: 85-year-old female presents to the emergency department with complaints of 1 day of nausea and vomiting episodes. She also states that she feels significantly bloated. She complains of left lower abdominal pain. She states that she has had this issue on and off for over a year at this point. She states that she did have a CAT scan approximately one month ago for this issue, however it is not in the [facility] record. In the emergency department, CT of the abdomen and pelvis was performed with concern for hernia containing bowel causing a small bowel obstruction. I was paged by the emergency department physician due to this finding. Did request nasogastric tube placement, however on exam nasogastric tube has not been placed. Patient is currently complaining of nausea and left lower quadrant abdominal pain. Denies any fevers, chills, chest pain or shortness of breath. She states that she did have a right inguinal hernia repair performed 15 years ago. Review of Systems All systems: negative Past Medical History Additional Past Medical History / Comment(s): pleural effusion, mitral valve prolapse History of Any Multi-Drug Resistant Organisms: None Reported Past Surgical History: Coronary Bypass/CABG Additional Past Surgical History / Comment(s): mitral and tricuspid repair, thoracentesis Past Psychological History: No Psychological Hx Reported Smoking Status: Never smoker Past Alcohol Use History: None Reported Past Drug Use History: None Reported Medications and Allergies Home Medications Medication Instructions Recorded Confirmed Type Aspirin 81 mg PO DAILY 11/08/19 09/18/20 History Verapamil HCl [Verapamil ER] 180 mg PO HS 11/08/19 09/18/20 History Allergies Allergy/AdvReac Type Severity Reaction Status Date / Time Beta-Blockers AdvReac heart Verified 09/18/20 23:02 (Beta-Adrenergic Bloc issues diltiazem AdvReac heart Verified 09/18/20 23:02 issues timolol AdvReac heart Verified 09/18/20 23:02 issues Surgical - Exam Osteopathic Statement: *. No significant issues noted on an osteopathic stru ctural exam other than those noted in the History and Physical/Consult. Vital Signs Temp Pulse Resp BP Pulse Ox 98.1 F 85 20 139/88 99 09/18/20 22:10 09/18/20 22:10 09/18/20 22:10 09/18/20 22:10 09/18/20 22:10 - General well nourished, no distress - Eyes PERRL - Respiratory normal respiratory effort - Abdomen Soft, tenderness to palpation in the left groin, palpable inguinal hernia containing bowel that is not reducible, no rebound, no guarding - Psychiatric oriented to time, oriented to person, oriented to place Results - Labs 09/18/20 22:16 09/18/20 22:16 Abnormal Lab Results - Last 24 Hours (Table) 09/18/20 09/18/20 09/19/20 Range/Units 22:16 22:16 01:54 Neutrophils # 9.2 H (1.3-7.7) k/uL Lymphocytes # 0.7 L (1.0-4.8) k/uL Sodium 136 L (137-145) mmol/L Glucose 159 H (74-99) mg/dL Lipase 366 H (23-300) U/L Ur Specific [place] 1.036 H (1.001-1.035) Urine Protein Trace H (Negative) Urine Ketones 3+ H (Negative) Diabetes panel 09/18/20 Range/Units 22:16 Sodium 136 L (137-145) mmol/L Potassium 4.1 (3.5-5.1) mmol/L Chloride 104 (98-107) mmol/L Carbon Dioxide 22 (22-30) mmol/L BUN 17 (7-17) mg/dL Creatinine 0.94 (0.52-1.04) mg/dL Glucose 159 H (74-99) mg/dL Calcium 9.1 (8.4-10.2) mg/dL AST 23 (14-36) U/L ALT 14 (4-34) U/L Alkaline Phosphatase 72 (38-126) U/L Total Protein 6.8 (6.3-8.2) g/dL Albumin 4.1 (3.5-5.0) g/dL Calcium panel 09/18/20 Range/Units 22:16 Calcium 9.1 (8.4-10.2) mg/dL Albumin 4.1 (3.5-5.0) g/dL Pituitary panel 09/18/20 Range/Units 22:16 Sodium 136 L (137-145) mmol/L Potassium 4.1 (3.5-5.1) mmol/L Chloride 104 (98-107) mmol/L Carbon Dioxide 22 (22-30) mmol/L BUN 17 (7-17) mg/dL Creatinine 0.94 (0.52-1.04) mg/dL Glucose 159 H (74-99) mg/dL Calcium 9.1 (8.4-10.2) mg/dL Adrenal panel 09/18/20 Range/Units 22:16 Sodium 136 L (137-145) mmol/L Potassium 4.1 (3.5-5.1) mmol/L Chloride 104 (98-107) mmol/L Carbon Dioxide 22 (22-30) mmol/L BUN 17 (7-17) mg/dL Creatinine 0.94 (0.52-1.04) mg/dL Glucose 159 H (74-99) mg/dL Calcium 9.1 (8.4-10.2) mg/dL Total Bilirubin 0.4 (0.2-1.3) mg/dL AST 23 (14-36) U/L ALT 14 (4-34) U/L Alkaline Phosphatase 72 (38-126) U/L Total Protein 6.8 (6.3-8.2) g/dL Albumin 4.1 (3.5-5.0) g/dL Assessment and Plan Plan: 85-year-old female with small bowel obstruction secondary to what appears to be an incarcerated inguinal hernia on the left side. This is not reducible on physical exam. We will keep the patient nothing by mouth, begin IV fluids and plan is for surgical intervention with inguinal hernia repair and reduction of this incarcerated bowel. Patient is aware that she may require laparotomy or possible bowel resection based on findings. Further recommendations to be provided after procedure. Risks, benefits and alternatives were provided to the patient. She did provide consent.
[2020-09-19] MEDS ORDERED: LIDOCAINE 2% GEL 30 ML TUBE TOPICAL ONE (07:50)
[2020-09-19] MEDS ORDERED: BUPIVACAINE (PF) 0.25% 30 ML VIAL SQ ONE ×3 (08:03)
[2020-09-19] MEDS ORDERED: LACTATED RINGERS 1,000 ML IV ONE (08:05)
[2020-09-19] MEDS ORDERED: MORPHINE SULFATE 2 MG/ML SYRINGE IV PRN (09:08)
[2020-09-19] MEDS ORDERED: HYDROmorphone 0.5 MG/0.5 ML SYRINGE IVP ONE ×2 (09:10→09:20)
[2020-09-19] MEDS: PANTOPRAZOLE 40 MG/10 ML VIAL IV SCH (10:29)
[2020-09-19] MEDS: HEPARIN SODIUM,PORCINE/PF 5,000 UNIT/0.5 ML SYRINGE SQ SCH ×2 (10:29→15:46)
[2020-09-19] MEDS: LACTATED RINGERS 1,000 ML IV SCH (10:30)
--- NOTE | 2020-09-19 10:43 | P.OP ---
Date of Procedure: 09/19/20 Preoperative Diagnosis: Incarcerated left inguinal hernia with small bowel obstruction Postoperative Diagnosis: Incarcerated left inguinal hernia with small bowel obstruction Procedure(s) Performed: Left inguinal hernia repair Anesthesia: JONATHON Surgeon: Tonie Patel Pathology: none sent Condition: stable Disposition: floor Indications for Procedure: 85-year-old female presented to the emergency department with complaints of abdominal pain, nausea and vomiting. On work-up she was found to have developed a symptomatic left incarcerated inguinal hernia with symptoms and confirmation of small bowel obstruction. Secondary to this, repair was indicated. Patient was explained the risks, benefits and alternatives to the procedure and did provide consent prior to attending the operating suite. Operative Findings: Left inguinal direct hernia containing hernia sac Description of Procedure: The patient was brought to the operating suite and placed in supine position on the operating table. Timeouts were performed using both preinduction and pr eincision safety checklist to verify correct patient, procedure, site and additional clinical information prior to beginning the procedure. Nasogastric tube was placed by anesthesia to decompress prior to intubation. General anesthesia was induced. The abdomen was then prepped and draped in usual sterile fashion. An incision was marked in the natural skin crease parallel to the inguinal ligament and planned to and near the pubic tubercle. The skin crease incision was made with a knife and deepened through camper's and Fany's fascia with electrocautery until the aponeurosis of the external oblique was encountered. The external ring was exposed. An incision was made in the midportion of the external oblique aponeurosis in the direction of its fibers. The incision was then extended towards the external ring and towards the ASIS. Flaps of the external oblique were then developed cephalad and inferiorly. The round ligament was identified. It was gently dissected free at the pubic tubercle and encircled with a [place] drain. Attention was directed to the anterior medial aspect of the ligament where the indirect and direct hernia sac was clearly identified. At this point, the bowel appeared to have reduced spontaneously. The hernia sac was entered and serous fluid was noted and drained. The examination revealed that the bowel had been reduced and was unable to be appropriately visualized and inspected. A finger was passed into the peritoneal cavity and the floor of the inguinal canal was assessed and found to be weak. The femoral canal was palpated and no hernia was identified. Redundant sac was excised. The stump of the sac was checked for hemostasis and allowed to retract into the abdomen after it was closed in pursestring fashion. Attention was then turned to the floor of the canal, which appeared to be weak. The conjoined tendon was identified and grasped with Allis clamps. A relaxing incision was then made along the cephalad aspect of the anterior rectus sheath. The conjoined tendon was then reached easily to the shelving edge of the ligament without tension. The conjoined tendon was then sutured to Byron's ligament with multiple simple sutures of 3-0 and 2-0 Vicryl. Remaining repair then consisted of sutures placed between the conjoined tendon and the shelving edge of the inguinal ligament. Hemostasis was again checked. The external oblique aponeurosis was then closed with a running suture of 3-0 Vicryl, taking care not to catch the ilioinguinal nerve and the suture line. Fany's fascia was then closed with interrupted 3-0 Vicryl. The skin was closed with a subcuticular stitch of 4-0 Vicryl. A sterile dressing was applied. Sponge and instrument count were noted to be correct. The patient tolerated the procedure well and was taken to postanesthesia care unit in stable condition. Case was discussed with the patient's family after completion. Based on the fact that the bowel had self reduced and was unable to be examined from this incision, decision was made during the procedure not to perform a laparotomy for evaluation of the bowel based on the fact that the patient did not have clinical signs of strangulation. We will continue to monitor the patient for any signs of ischemic bowel during her admission. Patient's family is understanding of this.
[2020-09-19] MEDS ORDERED: BENZOCAINE SPRAY 1 CAN MUCOUS MEM PRN (15:45)
[2020-09-19 17:29] LABS: Magnesium 1.9 mg/dL (1.6-2.3)
--- NOTE | 2020-09-19 17:48 | HP ---
HISTORY AND PHYSICAL DATE OF SERVICE: 09/19/2020. CHIEF COMPLAINT: Abdominal pain. HISTORY OF PRESENT ILLNESS: This 85-year-old woman with a past medical history of multiple medical problems including pleural effusion, mitral valve prolapse, history of CAD, CABG, history of mitral and tricuspid valve repair, thoracocentesis, being followed by Dr. Espinoza in the outpatient setting is complaining of abdominal pain for the past several days. Because of increasing abdominal symptoms and pain which was diffuse in character, the patient came to [facility] and a CT scan of the abdomen showed small bowel obstruction with transition point in the left ventral hernia. Because of incarcerated ventral hernia, the patient underwent a left inguinal hernia, inguinal hernia repair by Dr. Patel and the patient admitted for further evaluation and treatment. Blood pressure is slightly elevated. Otherwise, there is no history of fever, rigors. No headache, loss of consciousness, seizures at this time. PAST MEDICAL HISTORY: Past history of left pleural effusion, mitral valve prolapse, CAD and CABG. MEDICATIONS: Home medications are: Verapamil 180 mg q.h.s., aspirin 81 mg daily. ALLERGIES: BETA BLOCKERS AND DILTIAZEM and TIMOLOL. FAMILY HISTORY: No history of heart disease or strokes in the family. SOCIAL HISTORY: No history of smoking, no history of alcohol. REVIEW OF SYSTEMS: ENT: No diminished vision. No diminished hearing. CARDIOVASCULAR system as mentioned earlier. RESPIRATION: As mentioned earlier. GI: As mentioned earlier. : No dysuria. NERVOUS SYSTEM: No numbness or weakness. ALLERGY/IMMUNOLOGY: No asthma or hayfever. MUSCULOSKELETAL as mentioned earlier. HEMATOLOGY/ONCOLOGY: No history of anemia. ENDOCRINE: No history of diabetes or hypothyroidism. CONSTITUTIONAL: As mentioned earlier. DERMATOLOGY: Negative. RHEUMATOLOGY: Negative. PSYCHIATRY: As mentioned earlier. PHYSICAL EXAMINATION: Alert and oriented times three. Pulse 106, blood pressure 150/79, respirations 16, temperature 98.7, pulse ox 94% on room air. HEENT is conjunctivae normal. Oral mucosa moist. NECK is no jugular venous distention. No carotid bruit. CARDIOVASCULAR system: S1, S2 regular. No S3, no S4. RESPIRATION: Breath sounds diminished in the bases. No rhonchi. No crackles. ABDOMEN: Soft. Mild diffuse distention. Status post surgery. LEGS: No edema. No swelling. NERVOUS SYSTEM: Higher functions as mentioned earlier. Moves all 4 limbs. No focal motor or sensory deficits. LYMPHATICS: No lymph nodes palpable in the neck, axillae or groin. SKIN: No ulcers, rashes or bleeding. JOINTS: No active deforming arthropathy. LABS: CBC within normal limits. Sodium 136 and lipase is 366. ASSESSMENT: 1. Status post left inguinal hernia repair for incarcerated left inguinal hernia repair and small bowel obstruction. 2. Hypertension. 3. Hyponatremia. 4. Increased random blood sugar. 5. Elevated lipase. 6. History of left pleural effusion. 7. History of coronary artery disease, coronary artery bypass grafting. 8. History of mitral and tricuspid valve repair. 9. History of thoracocenteses. 10.Mitral valve prolapse. 11.Rule out PACs. RECOMMENDATIONS AND DISCUSSION: In this 85-year-old woman who presented with multiple complex medical issues, we will monitor the patient closely, continue the current medications, and symptomatic treatment. Resume the Verapamil. Otherwise, I would recommend EKG and remote tele also. Closely follow with surgery. DVT prophylaxis. Proton pump inhibitors. Prognosis guarded because of multiple complex medical issues. Further recommendations to follow. A copy of dictation being forwarded to Dr. Espinoza, who is the primary physician. MMODL / IJN: [id number] /
[2020-09-19] MEDS ORDERED: VERAPAMIL SR 180 MG TABLET.ER PO SCH (21:00)
[2020-09-19 23:10] LABS: Chol/HDL Ratio 3.13; LDL Cholesterol,Calculated 149.8 mg/dL (0.0-131.0); VLDL Calculation 16.2 mg/dL (5.00-40.00)
[2020-09-20] MEDS: HEPARIN SODIUM,PORCINE/PF 5,000 UNIT/0.5 ML SYRINGE SQ SCH ×3 (01:03→17:12)
[2020-09-20 06:38] LABS: Basophils % (A) 0 %; Eosinophils % (A) 0 %; HGB 11.5 gm/dL (11.4-16.0); Lymphocytes # (A) 1.3 k/uL (1.0-4.8); Lymphocytes % (A) 13 %; MCH 32.2 pg (25.0-35.0); MCHC 32.9 g/dL (31.0-37.0); MCV 98.1 fL (80.0-100.0); Mean Platelet Volume 7.8; Monocytes # (A) 0.7 k/uL (0-1.0); Monocytes % (A) 8 %; Neutrophils # (A) 7.5 k/uL (1.3-7.7); Neutrophils % (A) 78 %; Platelet Count 252 k/uL (150-450); RBC 3.56 m/uL (3.80-5.40); RDW 12.9 % (11.5-15.5); WBC 9.7 k/uL (3.8-10.6)
[2020-09-20] MEDS ORDERED: fentaNYL (PF) 50 MCG/ML 2 ML AMP IV PRN (07:00)
[2020-09-20] MEDS: PANTOPRAZOLE 40 MG/10 ML VIAL IV SCH (08:57)
[2020-09-20] MEDS: SODIUM CHLORIDE 0.9% 1,000 ML IV SCH ×2 (08:57→17:35)
[2020-09-20] MEDS: ASPIRIN 81 MG PO SCH (08:58)
[2020-09-20] MEDS: LACTATED RINGERS 1,000 ML IV SCH (08:58)
[2020-09-20] MEDS ORDERED: ACETAMINOPHEN TAB 325 MG TAB PO PRN (08:59)
--- NOTE | 2020-09-20 09:42 | P.PN ---
Subjective Progress Note Date: 09/20/20 Patient seen and examined at bedside. Complaining of pain around the incision. Denies any additional abdominal pain. Denies having flatus or bowel movement as of yet. Nasogastric tube in place. Objective - Vital Signs Vital signs: Vital Signs Temp 98.8 F 09/20/20 05:00 Pulse 84 09/20/20 05:00 Resp 16 09/20/20 05:00 BP 117/75 09/20/20 05:00 Pulse Ox 93 L 09/20/20 05:00 Intake & Output 09/19/20 09/20/20 09/20/20 18:59 06:59 18:59 Intake Total 1100 1200 Output Total 360 50 Balance 740 1150 Intake: IV 1100 Intake, IV Titration 1200 Amount Sodium Chloride 0.9% 1, 1200 000 ml @ 100 mls/hr IV . Q10H BARRY Rx#:[id number] Output: Gastric Drainage 300 Drainage 50 Left LEFT NARE 50 Urine 50 Estimated Blood Loss 10 Other: # Voids 2 2 - Constitutional General appearance: Present: cooperative, no acute distress - Respiratory Details: No difficulty with respiration - Gastrointestinal Gastrointestinal Comment(s): Soft, nontender, mild distention, no rebound, no guarding, left groin incision with appropriate tenderness on palpation, surgical dressing in place with no saturation - Musculoskeletal Musculoskeletal: Present: generalized weakness - Psychiatric Psychiatric: Present: A&O x's 3 - Labs CBC & Chem 7: 09/20/20 06:00 09/18/20 22:16 Labs: Abnormal Lab Results - Last 24 Hours (Table) 09/19/20 09/20/20 Range/Units 16:05 06:00 RBC 3.56 L (3.80-5.40) m/uL Cholesterol 244 H (0-200) mg/dL LDL Cholesterol, Calc 149.8 H (0.0-131.0) mg/dL HDL Cholesterol 78.0 H (40.0-60.0) mg/dL Assessment and Plan Plan: Postoperative day #1, left inguinal herniorrhaphy secondary to small bowel obstruction due to incarcerated inguinal hernia - Continue nasogastric tube and await bowel function - Continue n.p.o. for now, okay for oral medications and ice chips, use benzocaine spray due to some soreness in the throat - Increase activity - Incentive spirometry - Medical recommendations appreciated
[2020-09-20 10:16] LABS: Anion Gap 7.7 mmol/L (4.00-12.00); Calcium 8.3 mg/dL (8.7-10.3); Carbon Dioxide 27.3 mmol/L (21.6-31.8); Non-African American GFR(CKD) 68.2 (60.0-200.0); Potassium 4.3 mmol/L (3.5-5.5)
--- NOTE | 2020-09-20 14:00 | PN ---
PROGRESS NOTE DATE OF SERVICE: 09/20/2020 This 85-year-old woman who was admitted after left inguinal hernia repair is being closely monitored. No chest pain. No palpitations. No fever. The patient is on NG tube. Surgery is following the patient closely. No chest pain. No palpitations. PHYSICAL EXAMINATION: Alert and oriented times three. Pulse 98, blood pressure 119/60, respirations 16, temperature 98.2, pulse ox 98% on room air. HEENT: Conjunctivae normal. NECK: No JVD. CARDIOVASCULAR: S1, S2 muffled. RESPIRATORY SYSTEM: Breath sounds diminished at the bases. A few scattered rhonchi. ABDOMEN: Soft, nontender. NERVOUS SYSTEM: No focal deficits. LEGS: No edema. No swelling. LAB STUDIES: WBC 9.2, hemoglobin 11.5. ASSESSMENT: 1. Status post left inguinal hernia repair for incarcerated left inguinal hernia and small bowel obstruction. 2. Hypertension. 3. Hyponatremia. 4. Increased random blood sugar. 5. Elevated lipase. 6. History of left pleural effusion. 7. History of coronary artery disease, coronary artery bypass grafting. 8. History of mitral valve and tricuspid valve repair. 9. History of thoracocentesis. 10.Mitral valve prolapse. 11.Multiple PACs. RECOMMENDATIONS AND DISCUSSION: I recommend to continue current medications, management and symptomatic treatment. Otherwise at this time, lipase is normalized. The patient's lytes have been normal. I would also recommend a 2D echo with Doppler to complete the workup. Otherwise, continue to monitor. Closely follow with surgery. DVT prophylaxis. Further recommendations to follow. MMODL / IJN: [id number] /
[2020-09-20] MEDS ORDERED: HEPARIN SODIUM 1,000 UN/ML (10ML VL) IV PRN (16:28)
[2020-09-20] MEDS ORDERED: DILTIAZEM DRIP BOLUS FROM BAG 1 MG SOLN IV STA (16:41)
[2020-09-20] MEDS ORDERED: DILTIAZEM DRIP BOLUS FROM BAG 1 MG SOLN IV ONE (16:47)
[2020-09-20] MEDS: DILTIAZEM 125 MG in SODIUM CHLORIDE 0.9% 100 ML IV SCH (16:53)
[2020-09-20] MEDS: HEPARIN SOD,PORK IN 0.45% NACL 25,000 UNIT in 0.45% NACL 1 250ML.BAG IV SCH (17:00)
[2020-09-20 17:47] LABS: INR 0.9 (<1.2); Prothrombin Time 9.8 sec (9.0-12.0)
[2020-09-20 17:49] LABS: Partial Thromboplastin Time 20.3 sec (22.0-30.0)
[2020-09-20 19:26] LABS: Basophils % (A) 0 %; Eosinophils # (A) 0.1 k/uL (0-0.7); Eosinophils % (A) 0 %; HCT 34.7 % (34.0-46.0); HGB 11.6 gm/dL (11.4-16.0); Lymphocytes # (A) 1.3 k/uL (1.0-4.8); Lymphocytes % (A) 9 %; MCH 32.8 pg (25.0-35.0); MCHC 33.4 g/dL (31.0-37.0); MCV 98.3 fL (80.0-100.0); Monocytes # (A) 0.8 k/uL (0-1.0); Monocytes % (A) 6 %; Neutrophils # (A) 12.1 k/uL (1.3-7.7); Neutrophils % (A) 84 %; Platelet Count 236 k/uL (150-450); RBC 3.53 m/uL (3.80-5.40); RDW 12.9 % (11.5-15.5); WBC 14.4 k/uL (3.8-10.6)
[2020-09-21] MEDS: SODIUM CHLORIDE 0.9% 1,000 ML IV SCH ×2 (05:05→11:41)
[2020-09-21] MEDS: DILTIAZEM 125 MG in SODIUM CHLORIDE 0.9% 100 ML IV SCH ×2 (06:42→11:40)
[2020-09-21 09:20] LABS: Basophils % (A) 0 %; Eosinophils % (A) 0 %; HCT 33.7 % (34.0-46.0); HGB 11.2 gm/dL (11.4-16.0); Lymphocytes # (A) 1.2 k/uL (1.0-4.8); Lymphocytes % (A) 9 %; MCH 32.5 pg (25.0-35.0); MCHC 33.1 g/dL (31.0-37.0); MCV 98.2 fL (80.0-100.0); Mean Platelet Volume 8.1; Monocytes # (A) 0.8 k/uL (0-1.0); Monocytes % (A) 6 %; Neutrophils # (A) 11.7 k/uL (1.3-7.7); Neutrophils % (A) 85 %; Platelet Count 228 k/uL (150-450); RBC 3.43 m/uL (3.80-5.40); RDW 12.8 % (11.5-15.5); WBC 13.8 k/uL (3.8-10.6)
[2020-09-21 09:34] LABS: INR 0.9 (<1.2); Partial Thromboplastin Time 72.7 sec (22.0-30.0); Prothrombin Time 10.2 sec (9.0-12.0)
[2020-09-21 09:39] LABS: African American GFR (CKD) >90 (>60 ml/min/1.73 sqM); Anion Gap 6 mmol/L; Blood Urea Nitrogen 9 mg/dL (7-17); Carbon Dioxide 25 mmol/L (22-30); Chloride 107 mmol/L (98-107); Glucose 88 mg/dL (74-99); Non-African American GFR(CKD) 80 (>60 ml/min/1.73 sqM); Potassium 3.6 mmol/L (3.5-5.1); Sodium 138 mmol/L (137-145)
[2020-09-21] MEDS: PANTOPRAZOLE 40 MG/10 ML VIAL IV SCH (09:42)
[2020-09-21] MEDS: ASPIRIN 81 MG PO SCH (09:42)
--- NOTE | 2020-09-21 10:56 | P.PN ---
Subjective Progress Note Date: 09/21/20 Patient seen and examined at bedside. Based on telemetry changes, patient has been started on Cardizem and heparin drip. She is being followed by cardiology. She states abdominal pain is improving. She has had flatus. Complains of some incisional discomfort. Denies nausea or vomiting. States she is hungry. Objective - Vital Signs Vital signs: Vital Signs Temp 98.7 F 09/21/20 08:00 Pulse 90 09/21/20 08:00 Resp 22 09/21/20 08:00 BP 141/61 09/21/20 08:00 Pulse Ox 93 L 09/21/20 08:00 Intake & Output 09/20/20 09/21/20 09/21/20 18:59 06:59 18:59 Intake Total 125 119.151 Balance 125 119.151 Intake: Intake, IV Titration 125 119.151 Amount Diltiazem 125 mg In 125 Sodium Chloride 0.9% 100 ml @ 10 MG/HR 10 mls/hr IV .[id number] [facility] Rx#: [id number] Heparin Sod,Pork in 0.45% 119.151 NaCl 25,000 unit In 0.45 % NaCl 1 250ml.bag @ 12 UNITS/KG/HR 7.185 mls/hr IV .Q24H [facility] Rx#: [id number] Other: Voiding Method Toilet # Voids 1 # Bowel Movements 1 - Constitutional General appearance: Present: cooperative, no acute distress - Gastrointestinal Gastrointestinal Comment(s): Soft, mild distention, no rebound, no guarding, there is discomfort to palpation around the incision site - Musculoskeletal Musculoskeletal: Present: generalized weakness - Psychiatric Psychiatric: Present: A&O x's 3 - Labs CBC & Chem 7: 09/21/20 08:13 09/21/20 08:13 Labs: Abnormal Lab Results - Last 24 Hours (Table) 09/20/20 09/20/20 09/20/20 Range/Units 16:53 18:28 22:41 WBC 14.4 H (3.8-10.6) k/uL RBC 3.53 L (3.80-5.40) m/uL Hgb (11.4-16.0) gm/dL Hct (34.0-46.0) % Neutrophils # 12.1 H (1.3-7.7) k/uL APTT 20.3 L 64.2 H (22.0-30.0) sec Calcium (8.4-10.2) mg/dL 09/21/20 09/21/20 09/21/20 Range/Units 08:13 08:13 08:13 WBC 13.8 H (3.8-10.6) k/uL RBC 3.43 L (3.80-5.40) m/uL Hgb 11.2 L (11.4-16.0) gm/dL Hct 33.7 L (34.0-46.0) % Neutrophils # 11.7 H (1.3-7.7) k/uL APTT 72.7 H (22.0-30.0) sec Calcium 8.0 L (8.4-10.2) mg/dL Assessment and Plan Plan: Postoperative day #2, left inguinal herniorrhaphy secondary to small bowel obstruction due to incarcerated inguinal hernia - Patient is beginning to have flatus episodes, Will discontinue nasogastric tube - Advance to clear liquid diet - Increase activity - Incentive spirometry - At this point, there does not appear to be any clinical signs of ischemic bowel. We'll continue to follow. - Leukocytosis noted, most likely postsurgical - Medical recommendations appreciated
[2020-09-21] MEDS: AMPICILLIN-SULBACTAM 3 GM in SODIUM CHLORIDE 0.9% 100 ML IVPB SCH ×2 (11:40→19:58)
[2020-09-21] MEDS: VERAPAMIL SR 240 MG TABLET.ER PO SCH (11:40)
--- NOTE | 2020-09-21 13:15 | P.CRDCN ---
History of Present Illness Consult date: 09/21/20 Consult reason: atrial fibrillation History of present illness: The patient is an 85-year-old female who is currently admitted to the hospital after undergoing left inguinal hernia repair for incarcerated left inguinal hernia. Postoperatively this was complicated by A. fib with RVR with ventricular rates up to 170. Cardiology was consulted for further evaluation. The patient does have cardiac history of tricuspid and mitral valve replacements in 2018 and follows with a drawing hand out of [facility]. She states she did have postoperative atrial fibrillation after her valve surgery, but has maintained sinus rhythm on low-dose calcium channel storm. She states she was feeling well postoperatively, when she developed a sore throat. She used her benzocaine spray, which subsequently caused palpitations. This is when she notified the nursing staff and the EKG was performed showing A. fib with RVR. She states she is feeling well and only has mild pain in her incision site. She denies any chest pain or chest pressure. No dyspnea, orthopnea, or palpitations. DIAGNOSTICS: EKG shows A. fib with RVR Telemetry shows sinus rhythm with frequent PACs PAST MEDICAL HISTORY: Mitral and tricuspid replacement, CABG, postoperative atrial fibrillation, pleural effusions REVIEW OF SYSTEMS: No fever or chills. No cough or expectoration. No diaphoresis. Patient denies headache, dizziness, blurred vision, double vision. Patient denies any stomach discomfort. No nausea, vomiting. No hematochezia. No hematemesis. Denies any black stools or blood in his stools. Denies dysuria or hematuria. No muscle weakness or numbness. No chest pain or chest pressure. No dyspnea. Positive for pain at incision site PHYSICAL EXAMINATION: This is a 85-year-old female in no apparent distress at the time of my examination. HEENT: Head is atraumatic, normocephalic. Pupils are equal, round. Sclerae anicteric. Conjunctivae are clear. Mucous membranes of the mouth are moist. Neck is supple. There is no jugular venous distention. No carotid bruit is heard. CHEST EXAMINATION: Lungs are clear to auscultation. No chest wall tenderness is noted on palpation or with deep breathing. HEART EXAMINATION: Heart regular rate and rhythm. S1, S2 heard. No murmurs, gallops or rub. ABDOMEN: Soft, nontender. Bowel sounds are heard. No organomegaly noted. EXTREMITIES: 2+ peripheral pulses with no evidence of peripheral edema and no calf tenderness noted. NEUROLOGIC EXAMINATION: Patient is awake, alert and oriented x3. FINAL ASSESSMENT AND PLAN: Postoperative atrial fibrillation with rapid ventricular rate, converted to sinus rhythm with PACs on the talus and drip Status post left inguinal hernia repair History of mitral and tricuspid replacement History of CABG PLAN: Increase her oral dose of verapamil to 240 mg daily Wean off of the Cardizem drip over the next 6 hours Transitioned to oral anticoagulation; recommend Eliquis 2.5 mg twice daily. Patient is over 80 and less than 60 kg. Further recommendations will be based on clinical course The patient has been seen and evaluated. Plan of care has been reviewed and agreed upon by Dr Blair. Past Medical History Additional Past Medical History / Comment(s): pleural effusion, mitral valve prolapse History of Any Multi-Drug Resistant Organisms: None Reported Past Surgical History: Coronary Bypass/CABG Additional Past Surgical History / Comment(s): mitral and tricuspid repair, thoracentesis Past Psychological History: No Psychological Hx Reported Smoking Status: Never smoker Past Alcohol Use History: None Reported Past Drug Use History: None Reported Medications and Allergies Home Medications Medication Instructions Recorded Confirmed Type Aspirin 81 mg PO DAILY 11/08/19 09/18/20 History Verapamil HCl [Verapamil ER] 180 mg PO HS 11/08/19 09/18/20 History Allergies Allergy/AdvReac Type Severity Reaction Status Date / Time Beta-Blockers AdvReac heart Verified 09/18/20 23:02 (Beta-Adrenergic Bloc issues diltiazem AdvReac heart Verified 09/18/20 23:02 issues timolol AdvReac heart Verified 09/18/20 23:02 issues Physical Exam Vitals: Vital Signs Temp Pulse Resp BP Pulse Ox 09/21/20 11:50 98.2 F 84 18 137/63 96 09/21/20 08:00 98.7 F 90 22 141/61 93 L 09/21/20 04:00 98.1 F 94 22 119/69 98 09/21/20 01:40 106 H 20 09/21/20 00:00 98.7 F 106 H 20 150/67 94 L 09/20/20 20:00 97.9 F 84 20 154/81 95 09/20/20 17:21 121 H 16 114/74 Intake and Output 09/20/20 09/21/20 09/21/20 22:59 06:59 14:59 Intake Total 125 168.818 Balance 125 168.818 Intake: Intake, IV Titration 125 168.818 Amount Diltiazem 125 mg In 125 49.667 Sodium Chloride 0.9% 100 ml @ 10 MG/HR 10 mls/hr IV .[id number] [facility] Rx#: [id number] Heparin Sod,Pork in 0.45% 119.151 NaCl 25,000 unit In 0.45 % NaCl 1 250ml.bag @ 12 UNITS/KG/HR 7.185 mls/hr IV .Q24H [facility] Rx#: [id number] Other: Voiding Method Toilet Toilet # Voids 1 # Bowel Movements 1 Results 09/21/20 08:13 09/21/20 08:13 Coagulation 09/20/20 09/20/20 09/21/20 Range/Units 16:53 22:41 08:13 PT 9.8 10.2 (9.0-12.0) sec APTT 20.3 L 64.2 H 72.7 H (22.0-30.0) sec CBC 09/20/20 09/21/20 Range/Units 18:28 08:13 WBC 14.4 H 13.8 H (3.8-10.6) k/uL RBC 3.53 L 3.43 L (3.80-5.40) m/uL Hgb 11.6 11.2 L (11.4-16.0) gm/dL Hct 34.7 33.7 L (34.0-46.0) % Plt Count 236 228 (150-450) k/uL Comprehensive Metabolic Panel 09/21/20 Range/Units 08:13 Sodium 138 (137-145) mmol/L Potassium 3.6 (3.5-5.1) mmol/L Chloride 107 (98-107) mmol/L Carbon Dioxide 25 (22-30) mmol/L BUN 9 (7-17) mg/dL Creatinine 0.70 (0.52-1.04) mg/dL Glucose 88 (74-99) mg/dL Calcium 8.0 L (8.4-10.2) mg/dL Current Medications Generic Name Dose Route Start Last Admin Trade Name Freq PRN Reason Stop Dose Admin Acetaminophen 650 mg 09/20/20 08:59 09/20/20 09:16 Acetaminophen Tab 325 Mg Tab PO 650 mg Q4HR PRN Administration Fever and/ or Pain Aspirin 81 mg 09/20/20 09:00 09/21/20 09:42 Aspirin 81 Mg PO 81 mg DAILY [facility] Administration Benzocaine 1 spray 09/19/20 15:45 09/19/20 16:46 Benzocaine Broussard 1 Can MUCOUS MEM 1 spray QID PRN Administration Mouth Irritation Heparin Sodium (Porcine) 0 unit 09/20/20 16:28 Heparin Sodium 1,000 Un/Ml (10ml Vl) IV PER PROTOCOL PRN Low PTT Protocol Hydromorphone HCl 0.5 mg 09/19/20 01:17 Hydromorphone 0.5 Mg/0.5 Ml Syringe IVP Q3HR PRN Moderate Pain Diltiazem HCl 125 mg/ Sodium 125 mls @ 10 mls/hr 09/20/20 17:00 09/21/20 11:40 Chloride IV 10 mg/hr .[id number] [facility] 10 mls/hr Administration 10 MG/HR Heparin Sodium/Sodium Chloride 250 mls @ 7.185 mls/hr 09/20/20 17:00 09/21/20 09:35 25,000 unit/ Sodium Chloride IV 10 units/kg/hr .Q24H [facility] 5.987 mls/hr Titration Protocol 12 UNITS/KG/HR Ampicillin Sodium/Sulbactam 100 mls @ 200 mls/hr 09/21/20 12:00 09/21/20 11:4 0 Sodium 3 gm/ Sodium Chloride IVPB 200 mls/hr Q8H [facility] Administration Lactated Ringer's 1,000 mls @ 75 mls/hr 09/21/20 13:15 Lactated Ringers IV .[id number] [facility] Morphine Sulfate 2 mg 09/19/20 09:08 Morphine Sulfate 2 Mg/Ml Syringe IV Q4HR PRN Severe Pain Naloxone HCl 0.2 mg 09/19/20 01:17 Naloxone 0.4 Mg/Ml 1 Ml Vial IV Q2M PRN Opioid Reversal Ondansetron HCl 4 mg 09/19/20 01:17 Ondansetron 4 Mg/2 Ml Vial IVP Q8HR PRN Nausea And Vomiting Pantoprazole Sodium 40 mg 09/19/20 09:00 09/21/20 09:42 Pantoprazole 40 Mg/10 Ml Vial IV 40 mg DAILY [facility] Administration Verapamil HCl 240 mg 09/21/20 10:30 09/21/20 11:40 Verapamil Sr 240 Mg Tablet.Er PO 240 mg DAILY [facility] Administration Intake and Output 09/20/20 09/21/20 09/21/20 22:59 06:59 14:59 Intake Total 125 168.818 Balance 125 168.818 Intake: Intake, IV Titration 125 168.818 Amount Diltiazem 125 mg In 125 49.667 Sodium Chloride 0.9% 100 ml @ 10 MG/HR 10 mls/hr IV .[id number] [facility] Rx#: [id number] Heparin Sod,Pork in 0.45% 119.151 NaCl 25,000 unit In 0.45 % NaCl 1 250ml.bag @ 12 UNITS/KG/HR 7.185 mls/hr IV .Q24H [facility] Rx#: [id number] Other: Voiding Method Toilet Toilet # Voids 1 # Bowel Movements 1 09/21/20 08:13 09/21/20 08:13
[2020-09-21] MEDS ORDERED: FUROSEMIDE 10 MG/ML 4 ML VIAL IV STA (14:03)
--- NOTE | 2020-09-21 14:40 | XR ---
EXAMINATION TYPE: XR chest 1V portable DATE OF EXAM: 09/21/2020 CLINICAL HISTORY: chf. TECHNIQUE: Frontal view of the chest. COMPARISON: 08/06/[address] chest 03/10/2020. FINDINGS: Postsurgical changes of the heart and mediastinum. The cardiomediastinal silhouette is wit hin normal limits for size. Pulmonary vasculature is centrally congested. There is a redemonstrated s piculated nodule of the left upper lobe. Small bilateral pleural effusions. No pneumothorax seen. No acute displaced osseous fracture. IMPRESSION: 1. Central pulmonary vascular congestion and small bilateral pleural effusions. Differential include s CHF. 2. Spiculated nodule of the left upper lobe redemonstrated, which appears mildly more conspicuous ve rsus 08/06/2020.
--- NOTE | 2020-09-21 15:00 | PN ---
PROGRESS NOTE DATE OF SERVICE: 09/21/2020 This 85-year-old woman was admitted after left inguinal hernia, also had atrial ablation with fast ventricular rate. The patient was started on IV heparin as well as Cardizem. Patient transferred to telemetry at this time. The patient also had CHF previously. The basic labs showed normal hemoglobin. BNP is not available. Patient also complains some generalized edema. Lipase elevated initially but is normal. Cholesterol is also elevated. PAST MEDICAL HISTORY: Reviewed. REVIEW OF SYSTEMS: CARDIOVASCULAR SYSTEM: No angina. RESPIRATORY: As mentioned earlier. GI: As mentioned earlier. NEURO SYSTEM: No numbness or weakness. CURRENT MEDICATIONS: Reviewed include Tylenol, Unasyn, Hurricane spray, diltiazem, morphine sulfate, Narcan, Protonix, Isoptin. PHYSICAL EXAMINATION: Patient is alert, oriented x3. Pulse 84, blood pressure 137/61, respiration 18 temperature 98.2, pulse ox 98% on 3 L. HEENT: Conjunctivae normal. Oral mucosa moist. NECK: No jugular venous distention. No lymph node enlargement. CARDIOVASCULAR: S1, S2 irregular. No S3, no S4, RESPIRATORY: Diminished breath sounds at the bases. A few scattered rhonchi. ABDOMEN: Soft. Mild diffuse distention. Status post surgery. LEGS: No edema, no swelling. NERVOUS SYSTEM: Higher functions mentioned earlier. Moves all four limbs. No focal motor or sensory deficits. LYMPHATICS: No lymph node in neck or axilla. SKIN: No rash. JOINTS: No active deforming arthropathy. LABS: WBC 13.2, hemoglobin 11.2. Chest x-ray is not available. ASSESSMENT: 1. Status post left inguinal hernia repair of incarcerated inguinal hernia and small bowel obstruction. 2. Atrial fibrillation with fast ventricular rate. 3. Rule out congestive heart failure. 4. Hypertension. 5. Hyponatremia. 6. Increased random blood sugar. 7. Elevated lipase. 8. History of left pleural effusion. 9. History of coronary artery disease, coronary artery bypass grafting. 10.History of mitral valve repair and tricuspid valve repair. 11.History of thoracocentesis. 12.Mitral valve prolapse. 13.Multiple PACs. RECOMMENDATIONS: Recommend to continue current management and symptomatic treatment. Otherwise, at this time will consult Cardiology. I would also recommend a 2D echo with Doppler and chest x-ray and other medications. The patient is currently on clear liquids. We will cut down the IV fluids. Continue to monitor. The patient is also started empiric antibiotics. Prognosis guarded because of multiple complex medical issues. Further recommendations to follow. Discussed the patient with the daughter. TANISHA / GERARDN: [id number] /
[2020-09-21] MEDS: LACTATED RINGERS 1,000 ML IV SCH (17:15)
[2020-09-21] MEDS: HEPARIN SOD,PORK IN 0.45% NACL 25,000 UNIT in 0.45% NACL 1 250ML.BAG IV SCH (23:09)
[2020-09-22] MEDS: AMPICILLIN-SULBACTAM 3 GM in SODIUM CHLORIDE 0.9% 100 ML IVPB SCH ×3 (04:20→20:10)
[2020-09-22] MEDS: LACTATED RINGERS 1,000 ML IV SCH (04:21)
[2020-09-22 07:31] LABS: Basophils % (A) 0 %; Eosinophils # (A) 0.3 k/uL (0-0.7); Eosinophils % (A) 4 %; HCT 31.3 % (34.0-46.0); HGB 10.1 gm/dL (11.4-16.0); Lymphocytes # (A) 1.2 k/uL (1.0-4.8); Lymphocytes % (A) 14 %; MCH 31.6 pg (25.0-35.0); MCHC 32.3 g/dL (31.0-37.0); MCV 97.7 fL (80.0-100.0); Mean Platelet Volume 8.2; Monocytes # (A) 0.6 k/uL (0-1.0); Monocytes % (A) 7 %; Neutrophils % (A) 73 %; Platelet Count 219 k/uL (150-450); RDW 13.2 % (11.5-15.5); WBC 8.2 k/uL (3.8-10.6)
[2020-09-22 07:40] LABS: African American GFR (CKD) >90 (>60 ml/min/1.73 sqM); Anion Gap 2 mmol/L; Blood Urea Nitrogen 7 mg/dL (7-17); Calcium 7.6 mg/dL (8.4-10.2); Carbon Dioxide 30 mmol/L (22-30); Chloride 105 mmol/L (98-107); Glucose 97 mg/dL (74-99); Non-African American GFR(CKD) 81 (>60 ml/min/1.73 sqM); Potassium 3.1 mmol/L (3.5-5.1); Sodium 137 mmol/L (137-145)
[2020-09-22] MEDS: ASPIRIN 81 MG PO SCH (08:50)
[2020-09-22] MEDS: PANTOPRAZOLE 40 MG/10 ML VIAL IV SCH (08:50)
[2020-09-22] MEDS: VERAPAMIL SR 240 MG TABLET.ER PO SCH (08:50)
[2020-09-22] MEDS: METOPROLOL TARTRATE 25 MG TAB PO SCH ×2 (09:12→20:09)
[2020-09-22] MEDS: AMIODARONE 200 MG TAB PO SCH ×2 (09:12→20:19)
[2020-09-22] MEDS: VERAPAMIL SR 120 MG TABLET.ER PO SCH (09:30)
[2020-09-22] MEDS: DILTIAZEM 125 MG in SODIUM CHLORIDE 0.9% 100 ML IV SCH (11:14)
--- NOTE | 2020-09-22 12:01 | ECHOF ---
Referral Reason:irregular rhythm MEASUREMENTS -------- HEIGHT: 160.0 cm WEIGHT: 64.9 kg BP: 142/59 RVIDd: 2.3 cm (< 3.3) IVSd: 1.4 cm (0.6 - 1.1) LVIDd: 4.4 cm (3.9 - 5.3) LVPWd: 1.0 cm (0.6 - 1.1) IVSs: 2.1 cm LVIDs: 2.0 cm LVPWs: 1.9 cm Ao Diam: 2.8 cm (2.0 - 3.7) AV Cusp: 2.0 cm (1.5 - 2.6) LA Diam: 3.4 cm (2.7 - 3.8) MV EXCURSION: 15.618 mm (> 18.000) MV EF SLOPE: 25 mm/s (70 - 150) EPSS: 0.5 cm RAP: 5.00 mmHg RVSP: 27.53 mmHg FINDINGS -------- Atrial fibrillation. This was a technically good study. The left ventricular size is normal. There is mild concentric left ventricular hypertrophy. Overa ll left ventricular systolic function is normal with, an EF between 55 - 60 %. The right ventricle is normal in size. The left atrial size is normal. The right atrial size is normal. Unable to visualize atrial septum. The aortic valve is trileaflet and appears structurally normal. Normally functioning bioprosthetic mitral valve. There is mild regurgitation of the bioprosthetic m itral valve. Mild tricuspid regurgitation present. TV replacement. There is no pulmonic regurgitation present. The aortic root size is normal. Normal inferior vena cava with normal inspiratory collapse consistent with estimated right atrial pre ssure of 5 mmHg. There is a trivial pericardial effusion present. Moderate Pleural Effusion. CONCLUSIONS -------- 1. The left ventricular size is normal. 2. There is mild concentric left ventricular hypertrophy. 3. Overall left ventricular systolic function is normal with, an EF between 55 - 60 %. 4. Normally functioning bioprosthetic mitral valve. 5. There is mild regurgitation of the bioprosthetic mitral valve. 6. Mild tricuspid regurgitation present. 7. TV replacement. 8. There is a trivial pericardial effusion present. 9. Moderate Pleural Effusion. FACILITIES SUPERVISOR: Gayla Tirado RDCS
--- NOTE | 2020-09-22 12:01 | P.PN ---
Subjective Progress Note Date: 09/22/20 HISTORY OF PRESENT ILLNESS: This is an 85-year-old female with history of tricuspid and mitral valve replacement in 2018 and paroxysmal atrial fibrillation. Patient follows with a economic development manager at [facility]. Patient underwent left inguinal hernia repair with Dr. Patel. Patient went into atrial fibrillation with RVR postoperatively. She was placed on a cardizem drip. Patient is maintaining sinus mechanism this morning with frequent PACs. She denies chest pain or pressure. Denies shortness of breath. Denies palpitations. Blood pressure 120/56. PHYSICAL EXAM: VITAL SIGNS: Reviewed. GENERAL: Well-developed in no acute distress. NECK: Supple. No JVD or thyromegaly LUNGS: Respirations even and unlabored. Lungs essentially clear to auscultation bilaterally. HEART: Regular rate and rhythm. S1 and S2 heard. EXTREMITIES: Normal range of motion. No clubbing or cyanosis. Peripheral pulses intact. No lower extremity edema. ASSESSMENT: Status post left inguinal hernia repair Paroxysmal atrial fibrillation with RVR, currently maintaining sinus mechanism with PACs History of valve replacement, patient denies any bypass surgery Hypokalemia PLAN: 2D echo ordered. Await results. Discontinue IV cardizem Begin amiodarone 400 mg twice a day Begin metoprolol tartrate 25 mg twice a day Decrease verapamil to 120 mg daily Replace potassium Continue telemetry monitoring Continue IV heparin. Check cost of Eliquis and transition patient to oral anticoagulation if covered by insurance Discontinue aspirin as patient denies history of CAD Further recommendations pending patient's course Nurse practitioner note has been reviewed by physician. Signing provider agrees with the documented findings, assessment, and plan of care. Objective - Vital Signs Vital signs: Vital Signs Temp 98.0 F 09/22/20 08:31 Pulse 135 H 09/22/20 08:31 Resp 18 09/22/20 08:31 BP 120/56 09/22/20 08:31 Pulse Ox 96 09/22/20 08:31 Intake & Output 09/21/20 09/22/20 09/22/20 18:59 06:59 18:59 Intake Total 884.525 54.845 560 Output Total 400 550 Balance 484.525 -495.155 560 Weight 65 kg Intake: Intake, IV Titration 766.525 54.845 Amount Diltiazem 125 mg In 104.667 Sodium Chloride 0.9% 100 ml @ 10 MG/HR 10 mls/hr IV .[id number] [facility] Rx#: [id number] Heparin Sod,Pork in 0.45% 161.858 54.845 NaCl 25,000 unit In 0.45 % NaCl 1 250ml.bag @ 12 UNITS/KG/HR 7.185 mls/hr IV .Q24H [facility] Rx#: [id number] Sodium Chloride 0.9% 100 500 ml @ 0 mls/hr IV .STK-MED ONE with ceFAZolin 2,000 mg Rx#:[id number] Oral 118 560 Output: Urine 400 550 Other: Voiding Method Toilet Toilet # Voids 1 0 - Labs CBC & Chem 7: 09/22/20 06:57 09/22/20 06:57 Labs: Abnormal Lab Results - Last 24 Hours (Table) 09/21/20 09/21/20 09/22/20 Range/Units 16:06 22:58 06:57 RBC 3.20 L (3.80-5.40) m/uL Hgb 10.1 L (11.4-16.0) gm/dL Hct 31.3 L (34.0-46.0) % APTT 41.5 H 40.3 H (22.0-30.0) sec Potassium (3.5-5.1) mmol/L Calcium (8.4-10.2) mg/dL 09/22/20 09/22/20 Range/Units 06:57 06:57 RBC (3.80-5.40) m/uL Hgb (11.4-16.0) gm/dL Hct (34.0-46.0) % APTT 49.3 H (22.0-30.0) sec Potassium 3.1 L (3.5-5.1) mmol/L Calcium 7.6 L (8.4-10.2) mg/dL
[2020-09-22] MEDS: POTASSIUM CHLORIDE ER 20 MEQ TAB.ER PO SCH ×3 (12:20→15:16)
--- NOTE | 2020-09-22 12:24 | P.PN ---
Subjective Progress Note Date: 09/22/20 Patient seen and examined at bedside. States she is feeling much better. Denies any abdominal pain. Complains of some incisional pain. States she is having flatus and did have a bowel movement. Denies any nausea or vomiting episodes with her liquid diet. Objective - Vital Signs Vital signs: Vital Signs Temp 97.7 F 09/22/20 12:14 Pulse 62 09/22/20 12:14 Resp 18 09/22/20 12:14 BP 103/51 09/22/20 12:14 Pulse Ox 92 L 09/22/20 12:14 Intake & Output 09/21/20 09/22/20 09/22/20 18:59 06:59 18:59 Intake Total 884.525 54.845 560 Output Total 400 550 Balance 484.525 -495.155 560 Weight 65 kg Intake: Intake, IV Titration 766.525 54.845 Amount Diltiazem 125 mg In 104.667 Sodium Chloride 0.9% 100 ml @ 10 MG/HR 10 mls/hr IV .[id number] [facility] Rx#: [id number] Heparin Sod,Pork in 0.45% 161.858 54.845 NaCl 25,000 unit In 0.45 % NaCl 1 250ml.bag @ 12 UNITS/KG/HR 7.185 mls/hr IV .Q24H [facility] Rx#: [id number] Sodium Chloride 0.9% 100 500 ml @ 0 mls/hr IV .STK-MED ONE with ceFAZolin 2,000 mg Rx#:[id number] Oral 118 560 Output: Urine 400 550 Other: Voiding Method Toilet Toilet # Voids 1 0 - Constitutional General appearance: Present: cooperative, no acute distress - Respiratory Details: No difficulty with respiration - Gastrointestinal Gastrointestinal Comment(s): Soft, nontender, much improved distention, no rebound, no guarding, left groin incision clean, dry and intact - Musculoskeletal Musculoskeletal: Present: generalized weakness - Psychiatric Psychiatric: Present: A&O x's 3 - Labs CBC & Chem 7: 09/22/20 06:57 09/22/20 06:57 Labs: Abnormal Lab Results - Last 24 Hours (Table) 09/21/20 09/21/20 09/22/20 Range/Units 16:06 22:58 06:57 RBC 3.20 L (3.80-5.40) m/uL Hgb 10.1 L (11.4-16.0) gm/dL Hct 31.3 L (34.0-46.0) % APTT 41.5 H 40.3 H (22.0-30.0) sec Potassium (3.5-5.1) mmol/L Calcium (8.4-10.2) mg/dL 09/22/20 09/22/20 Range/Units 06:57 06:57 RBC (3.80-5.40) m/uL Hgb (11.4-16.0) gm/dL Hct (34.0-46.0) % APTT 49.3 H (22.0-30.0) sec Potassium 3.1 L (3.5-5.1) mmol/L Calcium 7.6 L (8.4-10.2) mg/dL Assessment and Plan Plan: Postoperative day #3, left inguinal herniorrhaphy secondary to small bowel obstruction due to incarcerated inguinal hernia - Patient continues to have increase in bowel function, advance to full liquid diet - Cardiology recommendations on atrial fibrillation - Increase activity, PT and OT have been counseled to - Incentive spirometry - At this point, there does not appear to be any clinical signs of ischemic bowel. We'll continue to follow. - Leukocytosis improved, most likely postsurgical - Medical recommendations appreciated
[2020-09-22] MEDS: FUROSEMIDE 10 MG/ML 4 ML VIAL IV SCH (13:52)
[2020-09-22] MEDS: APIXABAN 2.5 MG TABLET PO SCH ×2 (15:16→23:02)
--- NOTE | 2020-09-22 17:23 | PN ---
PROGRESS NOTE DATE OF SERVICE: 09/22/2020 This 85-year-old woman was admitted with left inguinal hernia, had atrial fibrillation. The patient had a 2D echo with Doppler today. The Doppler showed ejection fraction 50- 60%, mild mitral regurgitation was noted. A chest x-ray done yesterday which I reviewed personally showed some vascular congestion. No chest pain. No palpitations. No fever. PAST MEDICAL HISTORY: Reviewed. REVIEW OF SYSTEMS: CARDIOVASCULAR: As mentioned earlier. RESPIRATORY: As mentioned earlier. GI: As mentioned earlier. : No dysuria. NERVOUS SYSTEM: No numbness or weakness. CURRENT MEDICATIONS: Reviewed include Tylenol, Cordarone, Unasyn, heparin, Lopressor, Zofran, Protonix, Isoptin. PHYSICAL EXAMINATION: Patient is alert, oriented x3. Pulse 62, blood pressure ( ), respiration 18, temperature 97.7, pulse ox 98% on 1 L. HEENT: Conjunctivae normal. Oral mucosa moist. NECK: No jugular venous distention. No lymph node enlargement. CARDIOVASCULAR: S1, S2, muffled. No S3, no S4, RESPIRATORY: Diminished breath sounds at the bases. A few scattered rhonchi. ABDOMEN: Soft, nontender. LEGS: No edema, no swelling. NERVOUS SYSTEM: No focal deficits. LAB STUDIES: WBC 8, hemoglobin 10.1, sodium 130, potassium 3.1. ASSESSMENT: 1. Status post left inguinal hernia repair with incarcerated inguinal hernia with small bowel obstruction. 2. Atrial fibrillation with fast ventricular rate. 3. Congestive heart failure acute exacerbation with acute on chronic diastolic dysfunction, ejection 50-55%. 4. Hypertension. 5. Hyponatremia. 6. Hypokalemia. 7. Increased random blood sugar. 8. Elevated lipase. 9. History of left pleural effusion. 10.CAD/CABG. 11.History of mitral repair and tricuspid valve repair. 12.History of thoracocentesis. 13.History of multiple PVCs. 14.FULL CODE. RECOMMENDATIONS AND DISCUSSION: I recommend to continue current management and symptomatic treatment. Otherwise, at this time recommend repeat one dose of Lasix and started the patient on small dose of Lasix. Stop the IV fluids if the patient is p.o. and closely with Cardiology. Guarded prognosis. Further recommendations to follow. MMODL / IJN: [id number] /
[2020-09-23] MEDS: AMPICILLIN-SULBACTAM 3 GM in SODIUM CHLORIDE 0.9% 100 ML IVPB SCH ×2 (04:42→12:46)
[2020-09-23] MEDS: LACTATED RINGERS 1,000 ML IV SCH (06:09)
[2020-09-23] MEDS: FUROSEMIDE 10 MG/ML 4 ML VIAL IV SCH (08:45)
[2020-09-23] MEDS: METOPROLOL TARTRATE 25 MG TAB PO SCH (08:45)
[2020-09-23] MEDS: VERAPAMIL SR 120 MG TABLET.ER PO SCH (08:45)
[2020-09-23] MEDS: APIXABAN 2.5 MG TABLET PO SCH (08:45)
[2020-09-23] MEDS: AMIODARONE 200 MG TAB PO SCH (08:47)
[2020-09-23] MEDS ORDERED: PANTOPRAZOLE 40 MG TABLET PO SCH (09:00)
--- NOTE | 2020-09-23 09:25 | P.PN ---
Subjective Progress Note Date: 09/23/20 Patient seen and examined at bedside. States she is feeling much better today. Had a bowel movement and is passing flatus. Tolerating full liquid diet. Denies abdominal pain. Objective - Vital Signs Vital signs: Vital Signs Temp 98.3 F 09/23/20 08:42 Pulse 79 09/23/20 08:42 Resp 18 09/23/20 08:42 BP 121/59 09/23/20 08:42 Pulse Ox 93 L 09/23/20 08:42 Intake & Output 09/22/20 09/23/20 09/23/20 18:59 06:59 18:59 Intake Total 1280 240 Output Total 1000 300 Balance 280 -300 240 Weight 64.5 kg Intake: Oral 1280 240 Output: Urine 1000 300 Other: Voiding Method Toilet Toilet Toilet # Voids 1 - Constitutional General appearance: Present: cooperative, no acute distress - Gastrointestinal Gastrointestinal Comment(s): Soft, nontender, nondistended, no rebound, no guarding, mild tenderness around incision site, incision site is clean, dry and intact - Labs CBC & Chem 7: 09/22/20 06:57 09/22/20 06:57 Assessment and Plan Plan: Postoperative day #4, left inguinal herniorrhaphy secondary to small bowel obstruction due to incarcerated inguinal hernia - Patient continues to have increase in bowel function, advanced to soft diet - Cardiology recommendations on atrial fibrillation - Increase activity, PT and OT have been counseled to - Incentive spirometry - Denies abdominal pain and incisional pain appears to be improving. Patient is surgically stable for discharge. - Medical recommendations appreciated
[2020-09-23 10:42] LABS: Calcium 8.4 mg/dL (8.4-10.2); Potassium 3.4 mmol/L (3.5-5.1)
--- NOTE | 2020-09-23 10:43 | P.PN ---
Subjective Progress Note Date: 09/23/20 HISTORY OF PRESENT ILLNESS: This is an 85-year-old female with history of tricuspid and mitral valve replacement in 2018 and paroxysmal atrial fibrillation. Patient follows with a director of entertainment at [facility]. Patient underwent left inguinal hernia repair with Dr. Patel. Patient went into atrial fibrillation with RVR postoperatively. She was placed on a cardizem drip. Patient is maintaining sinus mechanism this morning with frequent PACs. She denies chest pain or pressure. Denies shortness of breath. Denies palpitations. Blood pressure 120/56. 09/23/2020 Patient examined this morning at the bedside. Patient denies chest pain or pressure. She denies shortness of breath. She has been transitioned to Eliquis. Patient refusing her amio as she states she had this after her valve surgery and had side effects to the medication. Telemetry reveals sinus mechanism with PACs. Echocardiogram completed revealed ejection fraction 55-60%. PHYSICAL EXAM: VITAL SIGNS: Reviewed. GENERAL: Well-developed in no acute distress. NECK: Supple. No JVD or thyromegaly LUNGS: Respirations even and unlabored. Lungs essentially clear to auscultation bilaterally. HEART: Regular rate and rhythm. S1 and S2 heard. EXTREMITIES: Normal range of motion. No clubbing or cyanosis. Peripheral pulses intact. No lower extremity edema. ASSESSMENT: Status post left inguinal hernia repair Paroxysmal atrial fibrillation with RVR, currently maintaining sinus mechanism with PACs History of valve replacement, patient denies any bypass surgery Hypokalemia PLAN: Continue Eliquis for anticoagulation Discontinue Amio as patient is refusing to take medication due to side effects Continue additional cardiac medications Discontinue IV lasix. Begin small dose of oral lasix 20mg daily Continue telemetry monitoring Patient may be discharged home today from a cardiac standpoint. Patient has an appointment scheduled tomorrow with her director of entertainment out of [place]. Nurse practitioner note has been reviewed by physician. Signing provider agrees with the documented findings, assessment, and plan of care. Objective - Vital Signs Vital signs: Vital Signs Temp 98.3 F 09/23/20 08:42 Pulse 79 09/23/20 08:42 Resp 18 09/23/20 08:42 BP 121/59 09/23/20 08:42 Pulse Ox 93 L 09/23/20 08:42 Intake & Output 09/22/20 09/23/20 09/23/20 18:59 06:59 18:59 Intake Total 1280 240 Output Total 1000 300 Balance 280 -300 240 Weight 64.5 kg Intake: Oral 1280 240 Output: Urine 1000 300 Other: Voiding Method Toilet Toilet Toilet # Voids 1 - Labs CBC & Chem 7: 09/22/20 06:57 09/23/20 09:52
[2020-09-23 12:15] VITALS: BP 131/60; PULSE 63; RESP 16; TEMP 98.6
--- NOTE | 2020-09-23 13:40 | CDI ---
Documentation Clarification Form Date: 09/23/2020 01:36:35 PM From: Edelmira Coronel RN, CCDS Admit Date: 09/19/2020 01:18:00 AM Patient Name: Skyla Arellano Visit Number: [id number] ATTENTION: The Clinical Documentation Specialists (CDI) and [facility] Coding Staff appreciate your assistance in clarifying documentation. Please respond to the clarification below the line at the bottom and electronically sign. The CDI & [facility] Coding staff will review the response and follow-up if needed. Please note: Queries are made part of the Legal Health Record. If you have any questions, please contact the author of this message via ITS. Dr. Tonie Patel Postoperative atrial fibrillation" is documented in the 09/21-09/23 cardiology consult and progress notes, on a patient that had and a left inguinal hernia repair 09/19/2020.Additional clarification is requested regarding the relationship, if any, that exists between the diagnosis and the procedure. Patients Admitting Diagnosis: Incarcerated left inguinal hernia with small bowel obstruction Post-Operative Diagnosis: Incarcerated left inguinal hernia with small bowel obstruction Procedure performed: Left inguinal hernia repair History/Risk Factors: Postoperative Atrial fib, mitral and tricuspid valve repair, CABG, CAD, acute on chronic systolic CHF Clinical Indicators: 09/21 Cardiology consult: She states she did have postoperative atrial fibrillation after her valve surgery, but has maintained sinus rhythm on low- dose calcium channel storm. Postoperative atrial fibrillation with rapid ventricular rate, converted to sinus rhythm with PACs on Cardizem drip. 09/22-09/23 Cardiology progress notes: "This is an 85-year-old female with history of tricuspid and mitral valve replacement in 2018 and paroxysmal atrial fibrillation. Patient went into atrial fibrillation with RVR postoperatively. ASSESSMENT: Paroxysmal atrial fibrillation with RVR, currently maintaining sinus mechanism with PACs." Treatment: Consults: Cardiology- see above documentation 09/20-09/22 Cardizem Gtt @ 10 mg/hr. 09/22 Eliquis 2.5 mg PO BID 09/20 ASA 81 mg PO QD 09/19 Verapamil 180 mg Po HS, -09/22 240 mg PO QD, 09/22 120 mg PO Daily 09/22 Lopressor 25 mg Po BID What relationship, if any, exists between the diagnosis of Paroxysmal atrial fibrillation with RVR and the procedure? [ ] Paroxysmal atrial fibrillation with RVR, is a complication of surgical procedure [ ] Paroxysmal atrial fibrillation with RVR, is an expected outcome of the surgical procedure [ ] Paroxysmal atrial fibrillation with RVR, is related to patients co-morbid condition(s) of atrial fib s/p mitral and tricuspid valve replacement, CAD, and CABG & not a complication of the procedure [ ] Paroxysmal atrial fibrillation with RVR, has been ruled out [ ] Other please specify ____ [ x ] Unable to determine (Template Last Revised: June 2020) MTDD
--- NOTE | 2020-09-24 05:45 | DS ---
DISCHARGE SUMMARY DATE OF SERVICE: 09/23/2020 FINAL DIAGNOSIS: 1. Status post left inguinal hernia repair with incarcerated inguinal hernia with small bowel obstruction. 2. Atrial fibrillation with fast ventricular rate. 3. Congestive heart failure acute exacerbation with acute on chronic diastolic dysfunction ejection fraction 50-55%. 4. Hypertension. 5. Hyponatremia. 6. Hypokalemia. 7. Increased random blood sugar. 8. Elevated lipase. 9. History of left pleural effusion. 10.History of coronary artery disease with coronary artery bypass grafting. 11.History of mitral repair and tricuspid valve repair. 12.History of thoracocentesis. 13.History of multiple PVCs. 14.FULL CODE. DISCHARGE DISPOSITION: The patient will be discharged in stable condition with guarded. Cleared by Surgery and Cardiology. HISTORY OF PRESENT ILLNESS: This is an 85-year-old woman with a past medical history of multiple medical problems, being followed by Dr. Espinoza in the outpatient setting, was admitted with left inguinal hernia repair by Dr. Patel for incarcerated left inguinal hernia as well as small-bowel obstruction. Postoperatively, the patient had features of atrial fibrillation with fast ventricular rate, mild congestive heart failure. The patient was transferred to telemetry and monitored briefly. Patient improved significantly, treated with diuretics and Cardiology saw the patient. Medication adjusted. Patient improved significantly. PHYSICAL EXAMINATION: On exam, vitals are stable. Cardiovascular S1 and S2. Abdomen is soft. Nervous System with no focal deficits. LABORATORY DATA: Hemoglobin 10.1, potassium 3.4 being corrected. Recommend close followup in the outpatient setting with Dr. Espinoza. DISCHARGE ADVICE AND MEDICATIONS: 1. Diet is cardiac. 2. Activity limited until followup. 3. Follow up with Dr. Espinoza in 2-3 days with CBC and BMP. 4. Follow up with Dr. Patel and Cardiology as recommended. Please note the medication changes are: 1. Eliquis 2.5 mg b.i.d. 2. Isoptin SR 120 mg p.o. daily. 3. K-Dur 10 mEq p.o. daily. 4. Lasix 20 mg p.o. daily. 5. Lopressor 25 mg p.o. b.i.d. 6. Protonix 40 mg daily. 7. Tylenol p.r.n. MMODL / IJN: [id number] /
[2020-09-24] MEDS ORDERED: FUROSEMIDE 20 MG TAB PO SCH (09:00)
== END 2020-09-23 16:18 | disposition home or self-care (01) | DRG 350 ==
LOC: EC 22:00 → 5NMEDONC 09-19 01:18 → 3SCARD 09-20 17:18
PROVIDERS: ADMIT Internal Medicine; ATTEND Internal Medicine
PROC: 0D9670Z Drainage of Stomach with Drainage Device, Via Natural or Artificial Opening (ICD-10-PCS; 2020-09-19)
PROC: 0YQ60ZZ Repair Left Inguinal Region, Open Approach (ICD-10-PCS; principal; 2020-09-19 07:30)
DX: K40.30 Unilateral inguinal hernia, with obstruction, without gangrene, not specified as recurrent (principal); I50.33 Acute on chronic diastolic (congestive) heart failure; E87.1 Hypo-osmolality and hyponatremia; I25.10 Atherosclerotic heart disease of native coronary artery without angina pectoris; Z20.822 Contact with and (suspected) exposure to COVID-19; Z95.1 Presence of aortocoronary bypass graft; I11.0 Hypertensive heart disease with heart failure; I34.1 Nonrheumatic mitral (valve) prolapse; R74.8 Abnormal levels of other serum enzymes; E87.6 Hypokalemia; I48.0 Paroxysmal atrial fibrillation; Z95.2 Presence of prosthetic heart valve; Z79.82 Long term (current) use of aspirin
CPT/HCPCS: 36415; 71045; 74177; 80048; 80053; 80061; 81003; 82150; 83690; 83735; 83880; 84484; 85025; 85610; 85730; 87635; 93005; 93306; 96361; 96374; 96376; 99285

== ENCOUNTER → 2023-07-13 | Outpatient (CLI) | payer MEDICARE, OTHER ==
--- NOTE | 2023-07-18 06:34 | CT ---
EXAMINATION TYPE: CT chest wo con CT DLP: 156.7 mGycm, Automated exposure control for dose reduction was used. DATE OF EXAM: 07/13/2023 12:22 PM COMPARISON: Chest x-ray 07/07/2023 and before, CT chest 03/10/2020 CLINICAL INDICATION:Female, 87 years old with history of R91.8 ABNORMAL LUNG FIELD; PHH, Abnormal berto g field. TECHNIQUE: Multiple axial images were obtained through the chest. Sagittal and coronal reformats were created for review. Contrast used: mL of (None if empty) Oral contrast used: (None if empty) FINDINGS: Examination limited by lack of IV contrast. LUNGS/ PLEURA: Medial left upper lobe solid spiculated nodule measures 22 x 18 mm image 17 series 4, versus 24 x 15 mm previously when measured on analogous slice. Morphology appears similar. Again a c ouple of small left upper lobe bronchi lead directly to this, and the nodule should be amenable to br onchoscopic evaluation/biopsy if desired. A 4 mm solid nodule in the right middle lobe image [address] able. No new or enlarging nodules are seen. No consolidation, effusion, pneumothorax. AIRWAY: Central airways are patent. LOWER NECK: No significant findings. MEDIASTINUM: No enlarged mediastinal or hilar nodes identified, within the limits of unenhanced exam. . HEART: Heart size upper normal. Radiodensities consistent with aortic and mitral valve prostheses. Mi ld/moderate coronary artery calcification, more on the right.. No appreciable pericardial effusion. VASCULATURE: Moderate atherosclerotic calcifications of the aorta and branches. Ascending aorta is 3 .3 CM, descending is 2.5 CM. Pulmonary trunk measures 2.9 CM. Pulmonary trunk is upper normal in size . Vessels otherwise not further assessed without contrast. SOFT TISSUES/LYMPH NODES: Unremarkable soft tissues. No axillary adenopathy. UPPER ABDOMEN: Similar-appearing hepatic hypodensities, likely cysts or hemangiomas. MUSCULOSKELETAL: No acute osseous abnormalities. Moderate disc degeneration changes are present throu ghout the thoracolumbar spine. Moderate S-shaped scoliosis involving the lower thoracic and upper lum bar spine. Partial eventration along both sides the diaphragm. IMPRESSION: 1. No significant interval change in size or morphology of a spiculated left upper lobe pulmonary no dule since February 2020. 2. Otherwise stable exam, without evidence of an acute abnormality.
== END | disposition home or self-care (01) ==
LOC: RADCTMAIN 11:18
PROVIDERS: ATTEND Internal Medicine
DX: R91.1 Solitary pulmonary nodule (principal)
CPT/HCPCS: 71250